=== PATIENT | female | born 1955 | race Caucasian/White ===

== ENCOUNTER → 2017-04-24 | Outpatient (CLI) | payer OTHER ==
--- NOTE | 2017-04-25 13:41 | MM ---
Reason for exam: screening (asymptomatic). Last mammogram was performed 1 year ago. History: Patient is postmenopausal. Taking estrogen for 7 years beginning at age 46. Physical Findings: A clinical breast exam by your physician is recommended on an annual basis and results should be correlated with mammographic findings. MG Screening Mammo w CAD Bilateral CC and MLO view(s) were taken. Prior study comparison: April 21, 2016, bilateral MG 3d screening mammo w/cad. July 10, 2014, bilateral MG foundation screening mammo. The breast tissue is heterogeneously dense. This may lower the sensitivity of mammography. ASSESSMENT: Benign, BI-RAD 2 RECOMMENDATION: Routine screening mammogram of both breasts in 1 year.
== END | disposition home or self-care (01) ==
LOC: RADMAMWWP 07:39
PROVIDERS: ATTEND Internal Medicine
DX: Z12.31 Encounter for screening mammogram for malignant neoplasm of breast (principal)

== ENCOUNTER → 2018-05-01 | Outpatient (CLI) | payer OTHER ==
--- NOTE | 2018-05-03 10:41 | MM ---
Reason for exam: screening (asymptomatic). Last mammogram was performed 1 year ago. History: Patient is postmenopausal. Taking estrogen for 7 years beginning at age 46. Physical Findings: A clinical breast exam by your physician is recommended on an annual basis and results should be correlated with mammographic findings. MG Screening Mammo w CAD Bilateral CC and MLO view(s) were taken. Prior study comparison: April 24, 2017, bilateral MG screening mammo w CAD. April 21, 2016, bilateral MG 3d screening mammo w/cad. There are scattered fibroglandular densities. Finding: There is a new equal density (isodense), indistinct round mass located 9 cm from the nipple in the upper outer quadrant, posterior position of the right breast. New finding since April 24, 2017. ASSESSMENT: Incomplete: need additional imaging evaluation, BI-RAD 0 RECOMMENDATION: Special view mammogram of the right breast. If lesion persists on supplemental views, image directed ultrasound is recommended. [facility] will attempt to contact patient to return for supplemental views and ultrasound if indicated.
== END | disposition home or self-care (01) ==
LOC: RADMAMWWP 06:55
PROVIDERS: ATTEND Internal Medicine
DX: Z12.31 Encounter for screening mammogram for malignant neoplasm of breast (principal)
CPT/HCPCS: 77067

== ENCOUNTER → 2018-05-16 | Outpatient (CLI) | payer OTHER ==
--- NOTE | 2018-05-29 13:45 | MM ---
Reason for exam: additional evaluation requested from abnormal screening. Last mammogram was performed less than 1 month ago. History: Patient is postmenopausal. Took estrogen for 7 years beginning at age 46. Physical Findings: Nurse did not find any significant physical abnormalities on exam. MG Work Up Mamm w CAD RT Spot compression CC, spot compression MLO, and ML view(s) were taken of the right breast. Prior study comparison: May 01, 2018, bilateral MG screening mammo w CAD. April 24, 2017, bilateral MG screening mammo w CAD. April 21, 2016, bilateral MG 3d screening mammo w/cad. There are scattered fibroglandular densities. The posterior upper outer quadrant focal asymmetry disperses on additional views. These results were verbally communicated with the patient and result sheet given to the patient on 05/16/18 ASSESSMENT: Negative, BI-RAD 1 RECOMMENDATION: Return to routine screening mammogram schedule for both breasts.
== END ==
LOC: RADMAMWWP 14:09
PROVIDERS: ATTEND Internal Medicine
DX: R92.8 Other abnormal and inconclusive findings on diagnostic imaging of breast (principal)
CPT/HCPCS: 77065

== ENCOUNTER → 2019-06-18 | Outpatient (CLI) | payer MEDICARE, OTHER ==
--- NOTE | 2019-06-20 09:28 | MM ---
Reason for exam: screening (asymptomatic). Last mammogram was performed 1 year and 1 month ago. History: Patient is postmenopausal. Took estrogen for 7 years beginning at age 46. Physical Findings: A clinical breast exam by your physician is recommended on an annual basis and results should be correlated with mammographic findings. MG Screening Mammo w CAD Bilateral CC and MLO view(s) were taken. Prior study comparison: May 16, 2018, right breast MG work up mamm w CAD RT. May 01, 2018, bilateral MG screening mammo w CAD. The breast tissue is heterogeneously dense. This may lower the sensitivity of mammography. There is chronic nodularity in the left breast. Round asymmetric density posterior, central right MLO view. ASSESSMENT: Incomplete: need additional imaging evaluation, BI-RAD 0 RECOMMENDATION: Special view mammogram of the right breast. (3D) If lesion persists on supplemental views, image directed ultrasound is recommended. [facility] will attempt to contact patient to return for supplemental views and ultrasound if indicated.
== END | disposition home or self-care (01) ==
LOC: RADMAMWWP 13:53
PROVIDERS: ATTEND Internal Medicine
DX: Z12.31 Encounter for screening mammogram for malignant neoplasm of breast (principal)
CPT/HCPCS: 77067

== ENCOUNTER → 2019-07-04 | Outpatient (CLI) | payer MEDICARE, OTHER ==
--- NOTE | 2019-07-05 09:43 | MM ---
Reason for exam: additional evaluation requested from abnormal screening. Last mammogram was performed 1 month ago. History: Patient is postmenopausal. Took estrogen for 7 years beginning at age 46. Physical Findings: Nurse did not find any significant physical abnormalities on exam. MG Work Up Mamm w CAD RT LM and spot compression MLO view(s) were taken of the right breast. Prior study comparison: June 18, 2019, bilateral MG screening mammo w CAD. May 16, 2018, right breast MG work up mamm w CAD RT. The breast tissue is heterogeneously dense. This may lower the sensitivity of mammography. The previously seen abnormality resolves on additional views and appears as fibroglandular tissue compatible with summation. Chronic nipple retraction. These results were verbally communicated with the patient and result sheet given to the patient on 07/04/19. ASSESSMENT: Negative, BI-RAD 1 RECOMMENDATION: Return to routine screening mammogram schedule for both breasts.
== END | disposition home or self-care (01) ==
LOC: RADMAMWWP 14:13
PROVIDERS: ATTEND Internal Medicine
DX: R92.8 Other abnormal and inconclusive findings on diagnostic imaging of breast (principal)
CPT/HCPCS: 77065

== ENCOUNTER → 2021-01-26 | Outpatient (CLI) | payer MEDICARE, OTHER ==
--- NOTE | 2021-01-27 09:29 | MM ---
Reason for exam: screening (asymptomatic). Last mammogram was performed 1 year and 7 months ago. History: Patient is postmenopausal. Took estrogen for 7 years beginning at age 46. Physical Findings: A clinical breast exam by your physician is recommended on an annual basis and results should be correlated with mammographic findings. MG 3D Screening Mammo W/Cad Bilateral CC and MLO view(s) were taken. Prior study comparison: July 04, 2019, right breast MG work up mamm w CAD RT. June 18, 2019, bilateral MG screening mammo w CAD. The breast tissue is heterogeneously dense. This may lower the sensitivity of mammography. There is no discrete abnormality. No significant changes when compared with prior studies. ASSESSMENT: Negative, BI-RAD 1 RECOMMENDATION: Routine screening mammogram of both breasts in 1 year.
== END | disposition home or self-care (01) ==
LOC: RADMAMWWP 14:02
PROVIDERS: ATTEND Internal Medicine
DX: Z12.31 Encounter for screening mammogram for malignant neoplasm of breast (principal)
CPT/HCPCS: 77063; 77067

== ENCOUNTER → 2021-07-15 | Outpatient (CLI) | payer MEDICARE, OTHER ==
--- NOTE | 2021-07-15 23:08 | US ---
EXAMINATION TYPE: US venous doppler duplex LE RT DATE OF EXAM: 07/15/2021 6:02 PM COMPARISON: NONE CLINICAL HISTORY: R22.43 bilateral swelling,M79.606 Pain in leg, uns. Right leg pain SIDE PERFORMED: Right TECHNIQUE: The lower extremity deep venous system is examined utilizing real time linear array sonog cheikh with graded compression, doppler sonography and color-flow sonography. VESSELS IMAGED: Common Femoral Vein Deep Femoral Vein Greater Saphenous Vein * Femoral Vein Popliteal Vein Small Saphenous Vein * Proximal Calf Veins (* superficial vessels) Right Leg: Negative for DVT Mccray's cyst visualized right popliteal fossa measuring 2.1 x 1.2 x 1.8 cm IMPRESSION: No evidence of deep vein thrombosis in the right leg.
== END | disposition home or self-care (01) ==
LOC: RADUSWWP 17:39
PROVIDERS: ATTEND Internal Medicine
DX: R22.43 Localized swelling, mass and lump, lower limb, bilateral (principal); M79.604 Pain in right leg

== ENCOUNTER 2021-08-07 18:44 | Inpatient (IN) | payer MEDICARE, OTHER ==
[2021-08-07] MEDS ORDERED: ACETAMINOPHEN TAB 500 MG TAB PO PRN (19:52)
[2021-08-07] MEDS ORDERED: ALBUTEROL HFA INHALER INHALATION STA (19:52)
--- NOTE | 2021-08-07 19:55 | ED ---
General Adult HPI - General Chief complaint: Shortness of Breath Stated complaint: SOB,CRISTOFER Poss COVID Time Seen by Provider: 08/07/21 19:33 Source: patient, RN notes reviewed Mode of arrival: ambulatory Limitations: no limitations - History of Present Illness Initial comments: Patient is a pleasant 66-year-old female presenting to the emergency department with concerns for possible COVID-19 infection. Onset of symptoms was 12 days ago. Patient does have mild cough. Patient does have some mild shortness of breathe. Patient does have significant fatigue. Patient has had some fevers and chills. Patient has had some mild myalgias. Patient did have some vomiting however that has resolved. Patient had a couple episodes of diarrhea. Patient states her sense of taste somewhat off. Patient has not been vaccinated. - Related Data Allergies Allergy/AdvReac Type Severity Reaction Status Date / Time No Known Allergies Allergy Verified 08/07/21 19:30 Review of Systems ROS Statement: Those systems with pertinent positive or pertinent negative responses have been documented in the HPI. ROS Other: All systems not noted in ROS Statement are negative. Constitutional: Reports: as per HPI, fever, chills Eyes: Denies: eye pain ENT: Denies: ear pain Respiratory: Reports: as per HPI, cough, dyspnea Endocrine: Reports: fatigue Gastrointestinal: Reports: nausea, vomiting, diarrhea. Denies: abdominal pain Genitourinary: Denies: dysuria Musculoskeletal: Denies: back pain Skin: Denies: rash Neurological: Denies: weakness Past Medical History Past Medical History: Hyperlipidemia, Thyroid Disorder History of Any Multi-Drug Resistant Organisms: None Reported Past Surgical History: No Surgical Hx Reported Past Psychological History: No Psychological Hx Reported Smoking Status: Never smoker Past Alcohol Use History: None Reported Past Drug Use History: None Reported General Exam Limitations: no limitations General appearance: alert, in no apparent distress Head exam: Present: normocephalic Eye exam: Present: normal appearance Neck exam: Present: normal inspection Respiratory exam: Present: normal lung sounds bilaterally Cardiovascular Exam: Present: regular rate, normal rhythm GI/Abdominal exam: Present: soft. Absent: tenderness Extremities exam: Present: normal inspection. Absent: pedal edema, calf tenderness Neurological exam: Present: alert Psychiatric exam: Present: normal affect, normal mood Skin exam: Present: normal color Course Vital Signs 08/07/21 08/07/21 19:26 19:47 Temperature 98 F Pulse Rate 98 Respiratory 19 Rate Blood Pressure 127/87 O2 Sat by Pulse 80 L 90 L Oximetry EKG Findings - EKG Comments: EKG Findings:: Normal sinus rhythm with a rate of 84. NV 152. QRS 68. QT 396. QTc 467. Normal axis. Normal QRS. No acute ST change. Medical Decision Making - Medical Decision Making Patient reevaluated and updated. Case was discussed with Dr. Noriega, who will admit covering Dr. Bran. - Lab Data Lab Results 08/07/21 Range/Units 19:42 Coronavirus (PCR) Detected A (Not Detectd) - Radiology Data Radiology results: image reviewed (X-ray shows bilateral interstitial changes) Disposition Clinical Impression: COVID-19, Hypoxemia requiring supplemental oxygen Disposition: ADMITTED IP TO THIS HOSP Condition: Serious Is patient prescribed a controlled substance at d/c from ED?: No Referrals: Karen Bran MD [Primary Care Provider] - 1-2 days Decision Time: 20:30
[2021-08-07] MEDS ORDERED: ALBUTEROL HFA INHALER INHALATION SCH (20:00)
--- NOTE | 2021-08-07 20:08 | XR ---
EXAMINATION TYPE: XR chest 1V portable DATE OF EXAM: 08/07/2021 COMPARISON: NONE HISTORY: Short of breath. Cough TECHNIQUE: Single view FINDINGS: Heart is normal. There is diffuse pulmonary interstitial and airspace edema in the mid and lower lung schneider. There is no pleural effusion. There are no hilar masses. IMPRESSION: There is pulmonary edema that could be acute heart failure or developing RDS.
[2021-08-07] MEDS ORDERED: NALOXONE 0.4 MG/ML 1 ML VIAL IV PRN (20:29)
[2021-08-07 20:47] LABS: Basophils # (A) 0.1 k/uL (0-0.2); Basophils % (A) 1 %; Eosinophils % (A) 0 %; HCT 43.9 % (34.0-46.0); HGB 14.5 gm/dL (11.4-16.0); Lymphocytes # (A) 0.7 k/uL (1.0-4.8); Lymphocytes % (A) 9 %; MCH 28.5 pg (25.0-35.0); MCHC 33.1 g/dL (31.0-37.0); MCV 86.1 fL (80.0-100.0); Monocytes # (A) 0.3 k/uL (0-1.0); Monocytes % (A) 5 %; Neutrophils # (A) 5.8 k/uL (1.3-7.7); Neutrophils % (A) 81 %; Platelet Count 257 k/uL (150-450); RBC 5.09 m/uL (3.80-5.40); RDW 12.9 % (11.5-15.5); WBC 7.1 k/uL (3.8-10.6)
[2021-08-07 21:00] LABS: ALT 63 U/L (4-34); AST 97 U/L (14-36); African American GFR (CKD) >90 (>60 ml/min/1.73 sqM); Albumin 3.5 g/dL (3.5-5.0); Alkaline Phosphatase 26 U/L (38-126); Anion Gap 7 mmol/L; Blood Urea Nitrogen 25 mg/dL (7-17); C Reactive Protein 3.7 mg/dL (<1.0); Calcium 9.2 mg/dL (8.4-10.2); Carbon Dioxide 30 mmol/L (22-30); Chloride 102 mmol/L (98-107); Glucose 126 mg/dL (74-99); LDH 1834 U/L (313-618); Magnesium 2.4 mg/dL (1.6-2.3); Non-African American GFR(CKD) >90 (>60 ml/min/1.73 sqM); Potassium 3.2 mmol/L (3.5-5.1); Sodium 139 mmol/L (137-145); Total Bilirubin 1.5 mg/dL (0.2-1.3); Total Protein 6.5 g/dL (6.3-8.2)
[2021-08-07] MEDS ORDERED: POTASSIUM CHLORIDE ER 20 MEQ TAB.ER PO STA (21:03)
[2021-08-07 21:31] LABS: INR 1.1 (<1.2); Prothrombin Time 11.2 sec (9.0-12.0)
[2021-08-07] MEDS: ZINC SULFATE 220 MG CAP PO SCH (21:39)
[2021-08-07] MEDS: MELATONIN 5 MG TABLET PO SCH (21:39)
[2021-08-07] MEDS: ASCORBIC ACID 500 MG TAB PO SCH (21:39)
[2021-08-07] MEDS: DEXAMETHASONE SOD PHOSPHATE 10 MG/ML 1 ML VIAL IVP SCH (21:40)
[2021-08-07] MEDS: SODIUM CHLORIDE 0.9% 1,000 ML IV SCH (21:40)
[2021-08-07] MEDS: CHOLECALCIFEROL 25 MCG (1000 IU) TABLET PO SCH (21:40)
[2021-08-08] MEDS: ALBUTEROL HFA INHALER INHALATION SCH ×3 (07:42→19:58)
[2021-08-08] MEDS ORDERED: POTASSIUM CHLORIDE ER 20 MEQ TAB.ER PO STA (09:14)
[2021-08-08] MEDS: DEXAMETHASONE SOD PHOSPHATE 10 MG/ML 1 ML VIAL IVP SCH ×2 (09:21→21:25)
[2021-08-08] MEDS: ASCORBIC ACID 500 MG TAB PO SCH ×2 (09:22→21:25)
[2021-08-08] MEDS: ZINC SULFATE 220 MG CAP PO SCH (09:22)
[2021-08-08] MEDS: CHOLECALCIFEROL 25 MCG (1000 IU) TABLET PO SCH (09:22)
[2021-08-08] MEDS: ENOXAPARIN 40 MG/0.4 ML SYRINGE SQ SCH (09:58)
[2021-08-08] MEDS: FAMOTIDINE 20 MG TAB PO SCH ×2 (09:58→21:25)
[2021-08-08] MEDS: SODIUM CHLORIDE 0.9% 1,000 ML IV SCH (10:28)
[2021-08-08 10:46] LABS: African American GFR (CKD) >90 (>60 ml/min/1.73 sqM); Anion Gap 7 mmol/L; Blood Urea Nitrogen 27 mg/dL (7-17); Calcium 9.2 mg/dL (8.4-10.2); Carbon Dioxide 27 mmol/L (22-30); Chloride 107 mmol/L (98-107); Glucose 167 mg/dL (74-99); Non-African American GFR(CKD) >90 (>60 ml/min/1.73 sqM); Sodium 141 mmol/L (137-145)
--- NOTE | 2021-08-08 12:15 | P.HPIM ---
History of Present Illness Patient is pleasant 66-year-old female came in with comments of shortness of breath found to be hypoxic patient is presently on 15 L of oxygen barely saturating well at 90% patient is found to have Covid 19 pneumonia with bilateral infiltrates patient was started on Decadron. Patient did not receive the code vaccine patient's symptoms has been going on for about 2 weeks. Patient's symptoms were episodes of diarrhea and generalized myalgias and fever patient presently doesn't have any fever. Patient has elevated inflammatory markers and d-dimer is 1.1. REVIEW OF SYSTEMS: CONSTITUTIONAL: No fever, no malaise, no fatigue. HEENT: No recent visual problems or hearing problems. Denied any sore throat. CARDIOVASCULAR: No chest pain, orthopnea, PND, no palpitations, no syncope. PULMONARY no hemoptysis. GASTROINTESTINAL: no nausea, no vomiting, no abdominal pain. NEUROLOGICAL: No headaches, no weakness, no numbness. HEMATOLOGICAL: Denies any bleeding or petechiae. GENITOURINARY: Denies any burning micturition, frequency, or urgency. MUSCULOSKELETAL/RHEUMATOLOGICAL: Denies any joint pain, swelling, or any muscle pain. ENDOCRINE: Denies any polyuria or polydipsia. The rest of the 14-point review of systems is negative. PHYSICAL EXAMINATION: GENERAL: The patient is alert and oriented x3, not in any acute distress. Well developed, well nourished. HEENT: Pupils are round and equally reacting to light. EOMI. No scleral icterus. No conjunctival pallor. Normocephalic, atraumatic. No pharyngeal erythema. No thyromegaly. CARDIOVASCULAR: S1 and S2 present. No murmurs, rubs, or gallops. PULMONARY: Chest is clear to auscultation, no wheezing or crackles. ABDOMEN: Soft, nontender, nondistended, normoactive bowel sounds. No palpable organomegaly. MUSCULOSKELETAL: No joint swelling or deformity. EXTREMITIES: No cyanosis, clubbing, or pedal edema. NEUROLOGICAL: Gross neurological examination did not reveal any focal deficits. SKIN: No rashes. Assessment and plan -Acute hypoxic respiratory failure secondary to Covid 19 pneumonia patient will be continued on oxygen can you with this. Support, patient was started on Decadron Covid vitamins patient is out of window for Remdesivir. -Hyperlipidemia -Hypothyroidism -Mildly elevated liver enzymes secondary to systemic inflammatory response from Covid 19 liver enzymes will be monitored DVT prophylaxis: Lovenox Past Medical History Past Medical History: Hyperlipidemia, Thyroid Disorder History of Any Multi-Drug Resistant Organisms: None Reported Past Surgical History: No Surgical Hx Reported Past Anesthesia/Blood Transfusion Reactions: No Reported Reaction Additional Past Anesthesia/Blood Transfusion Reaction / Comment(s): 2 blood transfusions with giving Past Psychological History: No Psychological Hx Reported Smoking Status: Never smoker Past Alcohol Use History: None Reported Past Drug Use History: None Reported - Past Family History Mother Family Medical History: Diabetes Mellitus Medications and Allergies Home Medications Medication Instructions Recorded Confirmed Type Atorvastatin [Lipitor] 40 mg PO HS 08/07/21 08/07/21 History Azithromycin [Zithromax Z-pack (6 See Taper PO DIRECTED 08/07/21 08/07/21 History tabs)] Levothyroxine Sodium [Euthyrox] 100 mcg PO DAILY 08/07/21 08/07/21 History predniSONE [Deltasone] 20 mg PO DAILY 08/07/21 08/07/21 History Allergies Allergy/AdvReac Type Severity Reaction Status Date / Time No Known Allergies Allergy Verified 08/07/21 21:02 Physical Exam Vitals: Vital Signs Temp Pulse Pulse Resp BP BP Pulse Ox 08/08/21 10:13 98.0 F 85 20 161/91 92 L 08/08/21 06:13 97.6 F 67 17 113/82 89 L 08/08/21 02:18 97.6 F 79 20 157/80 93 L 08/08/21 00:30 98.7 F 79 22 153/76 93 L 08/07/21 23:30 93 26 H 133/102 94 L 08/07/21 23:07 91 L 08/07/21 21:41 98.3 F 08/07/21 21:40 80 19 159/92 89 L 08/07/21 20:35 90 L 08/07/21 19:47 90 L 08/07/21 19:26 98 F 98 19 127/87 80 L Intake and Output 08/07/21 08/08/21 08/08/21 22:59 06:59 14:59 Other: Voiding Method Bedside Commode # Voids 1 Weight 79.379 kg 79.379 kg Results CBC & Chem 7: 08/07/21 20:25 10/31/21 10:07 Labs: Abnormal Lab Results - Last 24 Hours (Table) 08/07/21 08/07/21 08/07/21 Range/Units 19:42 20:25 20:25 Lymphocytes # 0.7 L (1.0-4.8) k/uL APTT 21.0 L (22.0-30.0) sec D-Dimer (<0.60) mg/L FEU Potassium (3.5-5.1) mmol/L BUN (7-17) mg/dL Glucose (74-99) mg/dL Magnesium (1.6-2.3) mg/dL Ferritin (10.0-291.0) ng/mL Total Bilirubin (0.2-1.3) mg/dL AST (14-36) U/L ALT (4-34) U/L Alkaline Phosphatase (38-126) U/L Lactate Dehydrogenase (313-618) U/L C-Reactive Protein (<1.0) mg/dL Coronavirus (PCR) Detected A (Not Detectd) 08/07/21 08/08/21 08/08/21 Range/Units 20:25 10:07 10:07 Lymphocytes # (1.0-4.8) k/uL APTT (22.0-30.0) sec D-Dimer 1.10 H (<0.60) mg/L FEU Potassium 3.2 L (3.5-5.1) mmol/L BUN 25 H 27 H (7-17) mg/dL Glucose 126 H 167 H (74-99) mg/dL Magnesium 2.4 H (1.6-2.3) mg/dL Ferritin 1177.0 H (10.0-291.0) ng/mL Total Bilirubin 1.5 H (0.2-1.3) mg/dL AST 97 H (14-36) U/L ALT 63 H (4-34) U/L Alkaline Phosphatase 26 L (38-126) U/L Lactate Dehydrogenase 1834 H (313-618) U/L C-Reactive Protein 3.7 H (<1.0) mg/dL Coronavirus (PCR) (Not Detectd) Thrombosis Risk Factor Assmnt - Choose All That Apply Each Factor Represents 1 point: Obesity (BMI >25) Thrombosis Risk Factor Assessment Total Risk Factor Score: 1 Thrombosis Risk Factor Assessment Level: Low Risk
[2021-08-08] MEDS: BARICITINIB 2 MG TABLET PO SCH (15:25)
--- NOTE | 2021-08-08 15:33 | P.CNPUL ---
History of Present Illness Consult date: 08/08/21 Requesting physician: Nimesh Suarez Reason for consult: dyspnea, hypoxemia, abnormal CXR/CT Chief complaint: Shortness of breath, cough, congestion History of present illness: This is a very pleasant 66-year-old female patient who follows with Dr. Bran as her primary care provider. She has hyperlipidemia, hypothyroidism. Approximately 12-13 days ago the patient developed a mild cough and shortness breath with fatigue, fever more so latex and some nausea with diarrhea. Poor appetite. She presented here to the emergency room last evening with progressive symptoms. She was found to be COVID-19 positive. She did not take the COVID-19 vaccination. Chest x-ray revealed bilateral patchy airspace disease. She was hypoxemic at 80% on room air. She is seen today in consultation on the regular medical floor. Currently sitting up in a chair at the bedside. Awake and alert. She is a dry nonproductive cough. Dyspnea on exertion. She is now up to 15 L high flow nasal cannula to maintain O2 saturations at 91%. White count 7.1. Hemoglobin 14.5. Platelets 257. Lymphocytes 0.7. D-dimer 1.10. Sodium 141. Potassium 4.0. Creatinine 0.59. Glucose 167. Ferritin 1177. LDH 1834. C-reactive protein 3.7. Pro-calcitonin 0.07. She's been initiated on Decadron, Lovenox, vitamin supplements. Outside the window for Remdesivir. Review of Systems REVIEW OF SYSTEMS: CONSTITUTIONAL: Fever, muscle aches, fatigue. Denies any recent significant weight loss or weight gain. EYES: Denies change in vision. EARS, NOSE, MOUTH, THROAT: Denies headaches, denies sore throat. CARDIOVASCULAR: Denies chest pain, palpitations or syncopal episodes. RESPIRATORY: Positive for shortness of breath, cough, congestion no hemoptysis. GASTROINTESTINAL: Poor appetite, nausea, denies abdominal pain GENITOURINARY: Denies hematuria, denies infections. MUSKULOSKELETAL: Denies pain, denies swelling. INTEGUMENTARY: Denies rash, denies eczema. NEUROLOGICAL: Denies recent memory loss, no recent seizure activity. PSYCHIATRIC: Denies anxiety, denies depression. HEMATOLOGIC/LYMPHATIC: Denies anemia, denies enlarged lymph nodes. Past Medical History Past Medical History: Hyperlipidemia, Thyroid Disorder History of Any Multi-Drug Resistant Organisms: None Reported Past Surgical History: No Surgical Hx Reported Past Anesthesia/Blood Transfusion Reactions: No Reported Reaction Additional Past Anesthesia/Blood Transfusion Reaction / Comment(s): 2 blood transfusions with giving Past Psychological History: No Psychological Hx Reported Smoking Status: Never smoker Past Alcohol Use History: None Reported Past Drug Use History: None Reported - Past Family History Mother Family Medical History: Diabetes Mellitus Medications and Allergies Home Medications Medication Instructions Recorded Confirmed Type Atorvastatin [Lipitor] 40 mg PO HS 08/07/21 08/07/21 History Azithromycin [Zithromax Z-pack (6 See Taper PO DIRECTED 08/07/21 08/07/21 History tabs)] Levothyroxine Sodium [Euthyrox] 100 mcg PO DAILY 08/07/21 08/07/21 History predniSONE [Deltasone] 20 mg PO DAILY 08/07/21 08/07/21 History Allergies Allergy/AdvReac Type Severity Reaction Status Date / Time No Known Allergies Allergy Verified 08/07/21 21:02 Physical Exam Vitals: Vital Signs Temp Pulse Pulse Resp BP BP Pulse Ox 08/08/21 13:46 91 L 08/08/21 10:13 98.0 F 85 20 161/91 92 L 08/08/21 06:13 97.6 F 67 17 113/82 89 L 08/08/21 02:18 97.6 F 79 20 157/80 93 L 08/08/21 00:30 98.7 F 79 22 153/76 93 L 08/07/21 23:30 93 26 H 133/102 94 L 08/07/21 23:07 91 L 08/07/21 21:41 98.3 F 08/07/21 21:40 80 19 159/92 89 L 08/07/21 20:35 90 L 08/07/21 19:47 90 L 08/07/21 19:26 98 F 98 19 127/87 80 L Intake and Output 08/08/21 08/08/21 08/08/21 06:59 14:59 22:59 Other: Voiding Method Bedside Commode # Voids 1 Weight 79.379 kg GENERAL EXAM: Alert, pleasant 66-year-old female patient, on 15 L high flow nasal cannula, fairly, comfortable in no apparent distress. HEAD: Normocephalic. EYES: Normal reaction of pupils, equal size. NOSE: Clear with pink turbinates. THROAT: No erythema or exudates. NECK: No masses, no JVD. CHEST: No chest wall deformity. LUNGS: Equal air entry with crackles in the bilateral bases. CVS: S1 and S2 normal with no audible murmur, regular rhythm. ABDOMEN: No hepatosplenomegaly, normal bowel sounds, no guarding or rigidity. SPINE: No scoliosis or deformity SKIN: No rashes CENTRAL NERVOUS SYSTEM: No focal deficits, tone is normal in all 4 extremities. EXTREMITIES: There is no peripheral edema. No clubbing, no cyanosis. Peripheral pulses are intact. Results - Laboratory Findings CBC and BMP: 08/07/21 20:25 08/08/21 10:07 PT/INR, D-dimer PT 11.2 sec (9.0-12.0) 08/07/21 20:25 INR 1.1 (<1.2) 08/07/21 20:25 D-Dimer 1.10 mg/L FEU (<0.60) H 08/08/21 10:07 Abnormal lab findings: Abnormal Labs 08/07/21 08/07/21 08/07/21 19:42 20:25 20:25 Lymphocytes # 0.7 L APTT 21.0 L D-Dimer Potassium BUN Glucose Magnesium Ferritin Total Bilirubin AST ALT Alkaline Phosphatase Lactate Dehydrogenase C-Reactive Protein Coronavirus (PCR) Detected A 08/07/21 08/08/21 08/08/21 20:25 10:07 10:07 Lymphocytes # APTT D-Dimer 1.10 H Potassium 3.2 L BUN 25 H 27 H Glucose 126 H 167 H Magnesium 2.4 H Ferritin 1177.0 H Total Bilirubin 1.5 H AST 97 H ALT 63 H Alkaline Phosphatase 26 L Lactate Dehydrogenase 1834 H C-Reactive Protein 3.7 H Coronavirus (PCR) - Diagnostic Findings Chest x-ray: image reviewed Assessment and Plan Assessment: 1 Acute hypoxemic respiratory failure secondary to COVID-19 pneumonia. Outside the window for Remdesivir. Patient is not vaccinated. Initiate Baricitinib. 2 Elevated inflammatory markers secondary to above 3 Hyperlipidemia 4 Hypothyroidism Plan: The patient was seen and evaluated by Dr. Roberts Chest x-ray and labs reviewed Continue Lovenox, Decadron, vitamin supplements Ordered Baricitinib Titrate the FiO2 as tolerated Follow-up chest x-ray, labs in a.m. We will continue to follow and make further recommendations based on her clinical status I, the cosigning physician, performed a history & physical examination of the patient. Lungs sounds with crackles in the bilateral bases. Maintaining good O2 saturations in the 90s on 15 L high flow nasal cannula. I discussed the assessment and plan of care with my nurse practitioner, Maggie Tarango. I attest to the above consultation as dictated by her. Time with Patient: Greater than 30
[2021-08-08] MEDS: ALPRAZolam 0.25 MG TAB PO PRN (17:47)
[2021-08-08] MEDS ORDERED: ATORVASTATIN 40 MG TAB PO SCH (21:00)
[2021-08-08] MEDS: MELATONIN 5 MG TABLET PO SCH (21:25)
[2021-08-09] MEDS: SODIUM CHLORIDE 0.9% 1,000 ML IV SCH ×3 (02:47→16:47)
[2021-08-09] MEDS: LEVOTHYROXINE 100 MCG TAB PO SCH (05:58)
[2021-08-09] MEDS: ALBUTEROL HFA INHALER INHALATION SCH ×3 (07:48→19:09)
[2021-08-09] MEDS: DEXAMETHASONE SOD PHOSPHATE 10 MG/ML 1 ML VIAL IVP SCH ×2 (08:47→21:37)
[2021-08-09] MEDS: ZINC SULFATE 220 MG CAP PO SCH (08:47)
[2021-08-09] MEDS: FAMOTIDINE 20 MG TAB PO SCH ×2 (08:47→21:38)
[2021-08-09] MEDS: CHOLECALCIFEROL 25 MCG (1000 IU) TABLET PO SCH (08:47)
[2021-08-09] MEDS: ASCORBIC ACID 500 MG TAB PO SCH ×2 (08:47→21:37)
[2021-08-09] MEDS: ENOXAPARIN 40 MG/0.4 ML SYRINGE SQ SCH (08:48)
[2021-08-09 11:05] LABS: HCT 37.8 % (37.2-46.3); HGB 11.8 g/dL (12.0-15.0); MCH 27.4 pg (27.0-32.0); MCHC 31.2 g/dL (32.0-37.0); MCV 87.7 fL (80.0-97.0); Mean Platelet Volume 11.7 fL (9.5-12.2); Platelet Count 314 X 10*3/uL (140-440); RBC 4.31 X 10*6/uL (4.10-5.20); RDW 13.2 % (11.5-14.5); WBC 6.21 X 10*3/uL (4.50-10.00)
[2021-08-09 11:21] LABS: African American GFR (CKD) 109.3 (60.0-200.0); Anion Gap 12.7 mmol/L (4.00-12.00); BUN/Creat Ratio 38.83 Ratio (12.00-20.00); Blood Urea Nitrogen 23.3 mg/dL (9.0-27.0); Calcium 8.5 mg/dL (8.7-10.3); Carbon Dioxide 23.3 mmol/L (21.6-31.8); Non-African American GFR(CKD) 94.3 (60.0-200.0); Potassium 3.6 mmol/L (3.5-5.5)
--- NOTE | 2021-08-09 13:53 | P.PN ---
Subjective Patient is pleasant 66-year-old female came in with comments of shortness of breath found to be hypoxic patient is presently on 15 L of oxygen barely saturating well at 90% patient is found to have Covid 19 pneumonia with bilateral infiltrates patient was started on Decadron. Patient did not receive the code vaccine patient's symptoms has been going on for about 2 weeks. Patient's symptoms were episodes of diarrhea and generalized myalgias and fever patient presently doesn't have any fever. Patient has elevated inflammatory markers and d-dimer is 1.1. Patient is feeling better today patient that remains 15. L of oxygen. Constitutional: Denied any fatigue denied any fever. Cardio vascular: denied any chest pain, palpitations Gastrointestinal denied any nausea vomiting Pulmonary: Denied any shortness of breath cough Neurologic denied any new focal deficits All inpatient medications were reviewed and appropriate changes in these m edications as dictated in the interval history and assessment and plan. PHYSICAL EXAMINATION: GENERAL: The patient is alert and oriented x3, not in any acute distress. Well developed, well nourished. HEENT: Pupils are round and equally reacting to light. EOMI. No scleral icterus. No conjunctival pallor. Normocephalic, atraumatic. No pharyngeal erythema. No thyromegaly. CARDIOVASCULAR: S1 and S2 present. No murmurs, rubs, or gallops. PULMONARY: Chest is clear to auscultation, no wheezing or crackles. ABDOMEN: Soft, nontender, nondistended, normoactive bowel sounds. No palpable organomegaly. MUSCULOSKELETAL: No joint swelling or deformity. EXTREMITIES: No cyanosis, clubbing, or pedal edema. NEUROLOGICAL: Gross neurological examination did not reveal any focal deficits. SKIN: No rashes. Assessment and plan -Acute hypoxic respiratory failure secondary to Covid 19 pneumonia patient will be continued on oxygen can you with this. Support, patient was started on Decadron Covid vitamins patient is out of window for Remdesivir. -Hyperlipidemia -Hypothyroidism -Mildly elevated liver enzymes secondary to systemic inflammatory response from Covid 19 liver enzymes will be monitored DVT prophylaxis: Lovenox Objective - Vital Signs Vital signs: Vital Signs Temp 97.5 F L 08/09/21 08:55 Pulse 76 08/09/21 08:55 Resp 18 08/09/21 08:55 BP 151/78 08/09/21 08:55 Pulse Ox 91 L 08/09/21 08:55 Intake & Output 08/08/21 08/09/21 08/09/21 18:59 06:59 18:59 Other: Voiding Method Bedside Commode Bedside Commode Bedside Commode # Voids 3 3 - Labs CBC & Chem 7: 08/09/21 07:15 08/09/21 07:15 Labs: Abnormal Lab Results - Last 24 Hours (Table) 08/09/21 08/09/21 Range/Units 07:15 07:15 Hgb 11.8 L (12.0-15.0) g/dL MCHC 31.2 L (32.0-37.0) g/dL Anion Gap 12.70 H (4.00-12.00) mmol/L BUN/Creatinine Ratio 38.83 H (12.00-20.00) Ratio Glucose 140 H (70-110) mg/dL Calcium 8.5 L (8.7-10.3) mg/dL Microbiology - Last 24 Hours (Table) 08/07/21 20:12 Blood Culture - Preliminary Blood No Growth after 24 hours 08/07/21 20:28 Blood Culture - Preliminary Blood No Growth after 24 hours
--- NOTE | 2021-08-09 15:36 | P.PN ---
Subjective Progress Note Date: 08/09/21 Principal diagnosis: Coronavirus associated pneumonia. This is a very pleasant 66-year-old female patient who follows with Dr. Bran as her primary care provider. She has hyperlipidemia, hypothyroidism. Approximately 12-13 days ago the patient developed a mild cough and shortness breath with fatigue, fever more so latex and some nausea with diarrhea. Poor appetite. She presented here to the emergency room last evening with progressive symptoms. She was found to be COVID-19 positive. She did not take the COVID-19 vaccination. Chest x-ray revealed bilateral patchy airspace disease. She was hypoxemic at 80% on room air. She is seen today in consultation on the regular medical floor. Currently sitting up in a chair at the bedside. Awake and alert. She is a dry nonproductive cough. Dyspnea on exertion. She is now up to 15 L high flow nasal cannula to maintain O2 saturations at 91%. White count 7.1. Hemoglobin 14.5. Platelets 257. Lymphocytes 0.7. D-dimer 1.10. Sodium 141. Potassium 4.0. Creatinine 0.59. Glucose 167. Ferritin 1177. LDH 1834. C-reactive protein 3.7. Pro-calcitonin 0.07. She's been initiated on Decadron, Lovenox, vitamin supplements. Outside the window for Remdesivir. Progress note dated 08/09/2021. 66-year-old female, again seen in room 480. She was admitted with a diagnosis of coronavirus associated pneumonia. She was seen by our consultative team, yesterday. Currently, the patient appears to be doing better. Currently, she is on 15 L high flow nasal cannula with saturations in the mid to high 90s. Temperature 97.4, heart rate 75, respiratory rate 18, and blood pressure 160/79. Laboratory data includes a white count of 6.21, hemoglobin 11.8, hematocrit 37.8, and platelet count 314,000. Sodium 145, potassium 3.6, chlorides 109, CO2 23, anion gap 13, BUN 23, and creatinine 0.6. Chest x-ray shows diffuse bilateral infiltrates. Objective - Vital Signs Vital signs: Vital Signs Temp 97.4 F L 08/09/21 14:24 Pulse 75 08/09/21 14:24 Resp 18 08/09/21 14:24 BP 160/79 08/09/21 14:24 Pulse Ox 96 08/09/21 14:24 Intake & Output 08/08/21 08/09/21 08/09/21 18:59 06:59 18:59 Other: Voiding Method Bedside Commode Bedside Commode Bedside Commode # Voids 3 3 - Exam No acute distress, oriented 3. Mild tachypnea. Currently on 15 L high flow nasal cannula. No conversational dyspnea or use of accessory muscles. HEENT examination is grossly unremarkable. Neck supple. Full range of motion. No adenopathy thyromegaly or neck vein distention. Cardiovascular examination reveals regular rhythm rate. S1-S2 normal. No S3 or S4. No discernible murmur noted. Heart rate 75 bpm. Heart sounds are distant. Lungs reveal diffuse bilateral rhonchi. Breath sounds are equal bilaterally. There are no wheezes or crackles. Saturations are 96% on high flow nasal cannula at 15 L/m. Abdomen soft bowel sounds are heard. No masses or tenderness. Extremities are intact. No cyanosis clubbing or edema. Skin is without rash or lesion. Neurologic examination is brief but nonfocal. - Labs CBC & Chem 7: 08/09/21 07:15 08/09/21 07:15 Labs: Abnormal Lab Results - Last 24 Hours (Table) 08/09/21 08/09/21 Range/Units 07:15 07:15 Hgb 11.8 L (12.0-15.0) g/dL MCHC 31.2 L (32.0-37.0) g/dL Anion Gap 12.70 H (4.00-12.00) mmol/L BUN/Creatinine Ratio 38.83 H (12.00-20.00) Ratio Glucose 140 H (70-110) mg/dL Calcium 8.5 L (8.7-10.3) mg/dL Microbiology - Last 24 Hours (Table) 08/07/21 20:12 Blood Culture - Preliminary Blood No Growth after 24 hours 08/07/21 20:28 Blood Culture - Preliminary Blood No Growth after 24 hours Assessment and Plan Assessment: Acute hypoxemic respiratory failure secondary to Covid 19 pneumonia/coronavirus associated pneumonia. Elevated inflammatory marker secondary to coronavirus infection. History of hyperlipidemia. History of hypothyroidism. Plan: Plan dated 08/09/2021. The patient's on albuterol inhaler, vitamin C, vitamin D3, and zinc, SERGEY, Decadron, and Lovenox. The patient states that she feels better today than she did yesterday. We will continue to follow make recommendations where appropriate. The patient was outside the window for REM. Prognosis is guarded. Time with Patient: Less than 30
[2021-08-09] MEDS: BARICITINIB 2 MG TABLET PO SCH (16:46)
[2021-08-09] MEDS: ALPRAZolam 0.25 MG TAB PO PRN (16:47)
[2021-08-09] MEDS: MELATONIN 5 MG TABLET PO SCH (21:37)
[2021-08-10] MEDS: LEVOTHYROXINE 100 MCG TAB PO SCH (05:34)
[2021-08-10 08:23] LABS: Basophils % (A) 0 %; Eosinophils % (A) 0 %; HCT 37.2 % (34.0-46.0); HGB 11.8 gm/dL (11.4-16.0); Lymphocytes # (A) 0.8 k/uL (1.0-4.8); Lymphocytes % (A) 13 %; MCHC 31.7 g/dL (31.0-37.0); MCV 88.3 fL (80.0-100.0); Mean Platelet Volume 8.8; Monocytes # (A) 0.4 k/uL (0-1.0); Monocytes % (A) 5 %; Neutrophils # (A) 5.4 k/uL (1.3-7.7); Neutrophils % (A) 81 %; Platelet Count 313 k/uL (150-450); RBC 4.21 m/uL (3.80-5.40); WBC 6.7 k/uL (3.8-10.6)
[2021-08-10] MEDS: ENOXAPARIN 40 MG/0.4 ML SYRINGE SQ SCH (08:32)
[2021-08-10] MEDS: CHOLECALCIFEROL 25 MCG (1000 IU) TABLET PO SCH (08:32)
[2021-08-10] MEDS: FAMOTIDINE 20 MG TAB PO SCH ×2 (08:33→21:30)
[2021-08-10] MEDS: ZINC SULFATE 220 MG CAP PO SCH (08:33)
[2021-08-10] MEDS: ASCORBIC ACID 500 MG TAB PO SCH ×2 (08:33→21:30)
[2021-08-10] MEDS: DEXAMETHASONE SOD PHOSPHATE 10 MG/ML 1 ML VIAL IVP SCH ×2 (08:35→21:30)
[2021-08-10 08:38] LABS: ALT 57 U/L (4-34); AST 57 U/L (14-36); African American GFR (CKD) >90 (>60 ml/min/1.73 sqM); Albumin/Globulin Ratio 1.1; Alkaline Phosphatase 21 U/L (38-126); Anion Gap 8 mmol/L; Blood Urea Nitrogen 22 mg/dL (7-17); Calcium 8.7 mg/dL (8.4-10.2); Carbon Dioxide 24 mmol/L (22-30); Chloride 110 mmol/L (98-107); Globulin 2.7 g/dL; Glucose 127 mg/dL (74-99); Non-African American GFR(CKD) >90 (>60 ml/min/1.73 sqM); Potassium 3.9 mmol/L (3.5-5.1); Sodium 142 mmol/L (137-145); Total Protein 5.7 g/dL (6.3-8.2)
[2021-08-10] MEDS: ALBUTEROL HFA INHALER INHALATION SCH ×3 (08:44→22:10)
[2021-08-10] MEDS: ALPRAZolam 0.25 MG TAB PO PRN (11:10)
--- NOTE | 2021-08-10 12:17 | P.PN ---
Subjective Progress Note Date: 08/10/21 Patient is pleasant 66-year-old female came in with comments of shortness of breath found to be hypoxic patient is presently on 15 L of oxygen barely saturating well at 90% patient is found to have Covid 19 pneumonia with bilateral infiltrates patient was started on Decadron. Patient did not receive the code vaccine patient's symptoms has been going on for about 2 weeks. Patient's symptoms were episodes of diarrhea and generalized myalgias and fever patient presently doesn't have any fever. Patient has elevated inflammatory markers and d-dimer is 1.1. Patient is feeling better today patient that remains 15. L of oxygen. 08/10/2021 Patient is evaluated today sitting up in the chair. She does state that at times she is especially short of breath and she is very worried about her status. She is in Xanax every 8 hours as needed, we will change this to twice a day scheduled. She is on 15 L high flow nasal cannula with an oxygen saturation of 93%. Blood pressure is 147/74. She is afebrile. She is quite fatigued she is only able to [place] [facility] [place] the chair. Labs today show a white count of 6.7. Chloride 110, potassium 3.9, sodium 142. Liver enzymes are mildly elevated. She is on Decadron, olumiant, and vitamins for COVID. ROS Constitutional: Denied any fatigue denied any fever reports feeling anxious Cardio vascular: denied any chest pain, palpitations Gastrointestinal denied any nausea vomiting Pulmonary: Her pressures of breath at rest and with exertion. Reports nonproductive cough. Neurologic denied any new focal deficits All inpatient medications were reviewed and appropriate changes in these medications as dictated in the interval history and assessment and plan. PHYSICAL EXAMINATION: GENERAL: The patient is alert and oriented x3, not in any acute distress. Well developed, well nourished. HEENT: Pupils are round and equally reacting to light. EOMI. No scleral icterus. No conjunctival pallor. Normocephalic, atraumatic. No pharyngeal erythema. No thyromegaly. CARDIOVASCULAR: S1 and S2 present. No murmurs, rubs, or gallops. PULMONARY: Chest is tight there is diminished airflow arteriorly with inspiration, she has some faint crackles posterior bases ABDOMEN: Soft, nontender, nondistended, normoactive bowel sounds. No palpable o rganomegaly. MUSCULOSKELETAL: No joint swelling or deformity. EXTREMITIES: No cyanosis, clubbing, or pedal edema. NEUROLOGICAL: Gross neurological examination did not reveal any focal deficits. SKIN: No rashes. Assessment and plan -Acute hypoxic respiratory failure secondary to Covid 19 pneumonia, patient requiring 15L high flow oxygen support via nasal cannula. Patient was started on Decadron and COVID vitamins patient is out of window for Remdesivir, on olumiant. -Hyperlipidemia -Hypothyroidism -Mildly elevated liver enzymes secondary to systemic inflammatory response from Covid 19 liver enzymes will be monitored -hyperglyemia s/t decadron will add novolog DVT prophylaxis: Lovenox GI Prophylaxis: Pepcid FULL CODE Repeat chest xray Objective - Vital Signs Vital signs: Vital Signs Temp 97.9 F 08/10/21 08:00 Pulse 81 08/10/21 08:00 Resp 20 08/10/21 08:00 BP 147/74 08/10/21 08:00 Pulse Ox 93 L 08/10/21 08:00 Intake & Output 08/09/21 08/10/21 08/10/21 18:59 06:59 18:59 Other: Voiding Method Bedside Commode Bedside Commode # Voids 2 4 # Bowel Movements 0 - Labs CBC & Chem 7: 08/10/21 07:42 08/10/21 07:42 Labs: Abnormal Lab Results - Last 24 Hours (Table) 08/10/21 08/10/21 Range/Units 07:42 07:42 Lymphocytes # 0.8 L (1.0-4.8) k/uL Chloride 110 H (98-107) mmol/L BUN 22 H (7-17) mg/dL Glucose 127 H (74-99) mg/dL AST 57 H (14-36) U/L ALT 57 H (4-34) U/L Alkaline Phosphatase 21 L (38-126) U/L Total Protein 5.7 L (6.3-8.2) g/dL Albumin 3.0 L (3.5-5.0) g/dL Microbiology - Last 24 Hours (Table) 08/07/21 20:12 Blood Culture - Preliminary Blood No Growth after 48 hours 08/07/21 20:28 Blood Culture - Preliminary Blood No Growth after 48 hours Assessment and Plan Time with Patient: Greater than 30
[2021-08-10] MEDS: INSULIN ASPART (NovoLOG) 100 UNIT/ML VIAL SQ SCH ×3 (12:51→21:38)
--- NOTE | 2021-08-10 12:51 | P.PN ---
Subjective Progress Note Date: 08/10/21 Principal diagnosis: Acute hypoxemic respiratory failure secondary to COVID-19 pneumonia This is a very pleasant 66-year-old female patient who follows with Dr. Bran as her primary care provider. She has hyperlipidemia, hypothyroidism. Approximately 12-13 days ago the patient developed a mild cough and shortness breath with fatigue, fever more so latex and some nausea with diarrhea. Poor appetite. She presented here to the emergency room last evening with progressive symptoms. She was found to be COVID-19 positive. She did not take the COVID-19 vaccination. Chest x-ray revealed bilateral patchy airspace disease. She was hypoxemic at 80% on room air. She is seen today in consultation on the regular medical floor. Currently sitting up in a chair at the bedside. Awake and alert. She is a dry nonproductive cough. Dyspnea on exertion. She is now up to 15 L high flow nasal cannula to maintain O2 saturations at 91%. White count 7.1. Hemoglobin 14.5. Platelets 257. Lymphocytes 0.7. D-dimer 1.10. Sodium 141. Potassium 4.0. Creatinine 0.59. Glucose 167. Ferritin 1177. LDH 1834. C-reactive protein 3.7. Pro-calcitonin 0.07. She's been initiated on Decadron, Lovenox, vitamin supplements. Outside the window for Remdesivir. Progress note dated 08/09/2021. 66-year-old female, again seen in room 480. She was admitted with a diagnosis of coronavirus associated pneumonia. She was seen by our consultative team, yesterday. Currently, the patient appears to be doing better. Currently, she is on 15 L high flow nasal cannula with saturations in the mid to high 90s. Temperature 97.4, heart rate 75, respiratory rate 18, and blood pressure 160/79. Laboratory data includes a white count of 6.21, hemoglobin 11.8, hematocrit 37.8, and platelet count 314,000. Sodium 145, potassium 3.6, chlorides 109, CO2 23, anion gap 13, BUN 23, and creatinine 0.6. Chest x-ray shows diffuse bilateral infiltrates. The patient is seen today 08/10/2021 in follow-up on the regular medical floor. She is currently sitting up in a chair at the bedside. Awake and alert in no acute distress. Still requiring 15 L high flow nasal cannula. Requiring some X anax for anxiety. Chest x-ray continues to show bilateral patchy infiltrates. She's currently afebrile. Hemodynamically stable. Blood cultures reveal no growth. White count 6.7. Hemoglobin 11.8. Lymphocytes 0.8. Sodium 142. Potassium 3.9. Creatinine 0.54. AST 57. ALT 57. We'll calcitonin was 0.07. She is continued on Baricitinib, Decadron, Lovenox, vitamin supplements. Remains on bronchodilators. Objective - Vital Signs Vital signs: Vital Signs Temp 97.9 F 08/10/21 08:00 Pulse 81 08/10/21 08:00 Resp 20 08/10/21 08:00 BP 147/74 08/10/21 08:00 Pulse Ox 93 L 08/10/21 08:00 Intake & Output 08/09/21 08/10/21 08/10/21 18:59 06:59 18:59 Other: Voiding Method Bedside Commode Bedside Commode # Voids 2 4 # Bowel Movements 0 - Exam GENERAL EXAM: Alert, pleasant 66-year-old female patient, on 15 L high flow nasal cannula, fairly comfortable in mild respiratory distress. HEAD: Normocephalic. EYES: Normal reaction of pupils, equal size. NOSE: Clear with pink turbinates. THROAT: No erythema or exudates. NECK: No masses, no JVD. CHEST: No chest wall deformity. LUNGS: Equal air entry with crackles in the bilateral bases. CVS: S1 and S2 normal with no audible murmur, regular rhythm. ABDOMEN: No hepatosplenomegaly, normal bowel sounds, no guarding or rigidity. SPINE: No scoliosis or deformity SKIN: No rashes CENTRAL NERVOUS SYSTEM: No focal deficits, tone is normal in all 4 extremities. EXTREMITIES: There is no peripheral edema. No clubbing, no cyanosis. Peripheral pulses are intact. - Labs CBC & Chem 7: 08/10/21 07:42 08/10/21 07:42 Labs: Abnormal Lab Results - Last 24 Hours (Table) 08/10/21 08/10/21 Range/Units 07:42 07:42 Lymphocytes # 0.8 L (1.0-4.8) k/uL Chloride 110 H (98-107) mmol/L BUN 22 H (7-17) mg/dL Glucose 127 H (74-99) mg/dL AST 57 H (14-36) U/L ALT 57 H (4-34) U/L Alkaline Phosphatase 21 L (38-126) U/L Total Protein 5.7 L (6.3-8.2) g/dL Albumin 3.0 L (3.5-5.0) g/dL Microbiology - Last 24 Hours (Table) 08/07/21 20:12 Blood Culture - Preliminary Blood No Growth after 48 hours 08/07/21 20:28 Blood Culture - Preliminary Blood No Growth after 48 hours Assessment and Plan Assessment: 1 Acute hypoxemic respiratory failure secondary to COVID-19 pneumonia. Outside the window for Remdesivir. Patient is not vaccinated. Initiated on Baricitinib 08/07/2021. 2 Elevated inflammatory markers secondary to above 3 Hyperlipidemia 4 Hypothyroidism Plan: The patient was seen and evaluated by Dr. Camp Chest x-ray and labs reviewed Continue Lovenox, Decadron, vitamin supplements Continue Baricitinib Titrate the FiO2 as tolerated Follow-up inflammatory markers in the a.m. We will continue to follow and make further recommendations based on her clinical status I, the cosigning physician, performed a history & physical examination of the patient. Lungs sounds with crackles in the bilateral bases. Maintaining good O2 saturations in the 90s on 15 L high flow nasal cannula. I discussed the assessment and plan of care with my nurse practitioner, Maggie Tarango. I attest to the above note as dictated by her.
--- NOTE | 2021-08-10 13:55 | XR ---
EXAMINATION TYPE: XR chest 1V portable DATE OF EXAM: 08/10/2021 COMPARISON: Chest x-ray 08/07/2021 HISTORY: Dyspnea TECHNIQUE: Single frontal view of the chest is obtained. FINDINGS: Patchy bilateral airspace disease is again noted. There is no evident pneumothorax or pleu ral effusion. Cardiac mediastinal silhouette is stable. Bones are unchanged. IMPRESSION: Correlate for pneumonia
[2021-08-10] MEDS: SODIUM CHLORIDE 0.9% 1,000 ML IV SCH (16:36)
[2021-08-10] MEDS: BARICITINIB 2 MG TABLET PO SCH (16:36)
[2021-08-10 16:37] LABS: Glucose,Whole Blood 197 mg/dL (75-99)
[2021-08-10] MEDS: ALPRAZolam 0.25 MG TAB PO SCH (21:30)
[2021-08-10] MEDS: MELATONIN 5 MG TABLET PO SCH (21:30)
[2021-08-10 21:39] LABS: Glucose,Whole Blood 109 mg/dL (75-99)
[2021-08-11] MEDS: LEVOTHYROXINE 100 MCG TAB PO SCH (05:40)
[2021-08-11] MEDS: SODIUM CHLORIDE 0.9% 1,000 ML IV SCH ×2 (05:40→19:52)
[2021-08-11 07:51] LABS: Glucose,Whole Blood 131 mg/dL (75-99)
[2021-08-11] MEDS: ALBUTEROL HFA INHALER INHALATION SCH ×3 (08:16→20:50)
[2021-08-11 09:15] LABS: Basophils % (A) 0 %; Eosinophils % (A) 0 %; HCT 38.5 % (34.0-46.0); HGB 12.9 gm/dL (11.4-16.0); Lymphocytes # (A) 0.6 k/uL (1.0-4.8); Lymphocytes % (A) 10 %; MCH 28.3 pg (25.0-35.0); MCHC 33.4 g/dL (31.0-37.0); MCV 84.8 fL (80.0-100.0); Mean Platelet Volume 8.5; Monocytes # (A) 0.3 k/uL (0-1.0); Monocytes % (A) 5 %; Neutrophils # (A) 5.3 k/uL (1.3-7.7); Neutrophils % (A) 84 %; Platelet Count 338 k/uL (150-450); RBC 4.54 m/uL (3.80-5.40); RDW 13.2 % (11.5-15.5); WBC 6.3 k/uL (3.8-10.6)
[2021-08-11] MEDS: INSULIN ASPART (NovoLOG) 100 UNIT/ML VIAL SQ SCH ×4 (09:17→21:00)
[2021-08-11] MEDS: ASCORBIC ACID 500 MG TAB PO SCH ×2 (09:26→20:11)
[2021-08-11] MEDS: ZINC SULFATE 220 MG CAP PO SCH (09:26)
[2021-08-11] MEDS: CHOLECALCIFEROL 25 MCG (1000 IU) TABLET PO SCH (09:27)
[2021-08-11] MEDS: FAMOTIDINE 20 MG TAB PO SCH ×2 (09:27→20:11)
[2021-08-11] MEDS: ENOXAPARIN 40 MG/0.4 ML SYRINGE SQ SCH (09:28)
[2021-08-11] MEDS: ALPRAZolam 0.25 MG TAB PO SCH ×2 (09:28→20:11)
[2021-08-11] MEDS: DEXAMETHASONE SOD PHOSPHATE 10 MG/ML 1 ML VIAL IVP SCH ×2 (09:28→20:11)
[2021-08-11 09:49] LABS: ALT 59 U/L (4-34); AST 58 U/L (14-36); African American GFR (CKD) >90 (>60 ml/min/1.73 sqM); Albumin 3.2 g/dL (3.5-5.0); Albumin/Globulin Ratio 1.2; Alkaline Phosphatase 24 U/L (38-126); Anion Gap 7 mmol/L; Blood Urea Nitrogen 20 mg/dL (7-17); C Reactive Protein 0.9 mg/dL (<1.0); Carbon Dioxide 25 mmol/L (22-30); Chloride 105 mmol/L (98-107); Globulin 2.7 g/dL; Glucose 149 mg/dL (74-99); LDH 1004 U/L (313-618); Non-African American GFR(CKD) >90 (>60 ml/min/1.73 sqM); Potassium 3.7 mmol/L (3.5-5.1); Sodium 137 mmol/L (137-145); Total Protein 5.9 g/dL (6.3-8.2)
[2021-08-11 11:40] LABS: Glucose,Whole Blood 169 mg/dL (75-99)
--- NOTE | 2021-08-11 13:04 | P.PN ---
Subjective Progress Note Date: 08/11/21 Principal diagnosis: Acute hypoxemic respiratory failure secondary to COVID-19 pneumonia This is a very pleasant 66-year-old female patient who follows with Dr. Bran as her primary care provider. She has hyperlipidemia, hypothyroidism. Approximately 12-13 days ago the patient developed a mild cough and shortness breath with fatigue, fever more so latex and some nausea with diarrhea. Poor appetite. She presented here to the emergency room last evening with progressive symptoms. She was found to be COVID-19 positive. She did not take the COVID-19 vaccination. Chest x-ray revealed bilateral patchy airspace disease. She was hypoxemic at 80% on room air. She is seen today in consultation on the regular medical floor. Currently sitting up in a chair at the bedside. Awake and alert. She is a dry nonproductive cough. Dyspnea on exertion. She is now up to 15 L high flow nasal cannula to maintain O2 saturations at 91%. White count 7.1. Hemoglobin 14.5. Platelets 257. Lymphocytes 0.7. D-dimer 1.10. Sodium 141. Potassium 4.0. Creatinine 0.59. Glucose 167. Ferritin 1177. LDH 1834. C-reactive protein 3.7. Pro-calcitonin 0.07. She's been initiated on Decadron, Lovenox, vitamin supplements. Outside the window for Remdesivir. Progress note dated 08/09/2021. 66-year-old female, again seen in room 480. She was admitted with a diagnosis of coronavirus associated pneumonia. She was seen by our consultative team, yesterday. Currently, the patient appears to be doing better. Currently, she is on 15 L high flow nasal cannula with saturations in the mid to high 90s. Temperature 97.4, heart rate 75, respiratory rate 18, and blood pressure 160/79. Laboratory data includes a white count of 6.21, hemoglobin 11.8, hematocrit 37.8, and platelet count 314,000. Sodium 145, potassium 3.6, chlorides 109, CO2 23, anion gap 13, BUN 23, and creatinine 0.6. Chest x-ray shows diffuse bilateral infiltrates. The patient is seen today 08/10/2021 in follow-up on the regular medical floor. She is currently sitting up in a chair at the bedside. Awake and alert in no acute distress. Still requiring 15 L high flow nasal cannula. Requiring some X anax for anxiety. Chest x-ray continues to show bilateral patchy infiltrates. She's currently afebrile. Hemodynamically stable. Blood cultures reveal no growth. White count 6.7. Hemoglobin 11.8. Lymphocytes 0.8. Sodium 142. Potassium 3.9. Creatinine 0.54. AST 57. ALT 57. We'll calcitonin was 0.07. She is continued on Baricitinib, Decadron, Lovenox, vitamin supplements. Remains on bronchodilators. The patient is seen today 08/11/2021 in follow-up on the regular medical floor. She is awake and alert in no acute distress. She is sitting up in a chair at the bedside. She is still requiring 15 L high flow nasal cannula to maintain O2 saturations at 92% currently. Afebrile. Hemodynamically stable. White count 6.3. Hemoglobin 12.9. Lymphocytes 0.6. D-dimer 1.05. Sodium 137. Potassium 3.7. Creatinine 0.63. Glucose 149. AST 58, ALT 59. LDH 1004. C-reactive protein 0.9. She is continued on Baricitinib, Decadron, Lovenox, bronchodilators, vitamin supplements. 0.9 normal saline at 75 ML's per hour. Objective - Vital Signs Vital signs: Vital Signs Temp 98 F 08/11/21 10:40 Pulse 77 08/11/21 10:40 Resp 17 08/11/21 10:40 BP 156/79 08/11/21 10:40 Pulse Ox 92 L 08/11/21 10:40 Intake & Output 08/10/21 08/11/21 08/11/21 18:59 06:59 18:59 Intake Total 236 Balance 236 Intake: Oral 236 Other: Voiding Method Bedside Commode Bedside Commode # Voids 3 2 - Exam GENERAL EXAM: Alert, pleasant 66-year-old female patient, on 15 L high flow nasal cannula, up in a chair at the bedside, fairly comfortable in mild respiratory distress. HEAD: Normocephalic. EYES: Normal reaction of pupils, equal size. NOSE: Clear with pink turbinates. THROAT: No erythema or exudates. NECK: No masses, no JVD. CHEST: No chest wall deformity. LUNGS: Equal air entry with crackles in the bilateral bases. CVS: S1 and S2 normal with no audible murmur, regular rhythm. ABDOMEN: No hepatosplenomegaly, normal bowel sounds, no guarding or rigidity. SPINE: No scoliosis or deformity SKIN: No rashes CENTRAL NERVOUS SYSTEM: No focal deficits, tone is normal in all 4 extremities. EXTREMITIES: There is no peripheral edema. No clubbing, no cyanosis. Peripheral pulses are intact. - Labs CBC & Chem 7: 08/11/21 08:45 08/11/21 08:45 Labs: Abnormal Lab Results - Last 24 Hours (Table) 08/10/21 08/10/21 08/11/21 Range/Units 16:31 21:37 07:49 Lymphocytes # (1.0-4.8) k/uL D-Dimer (<0.60) mg/L FEU BUN (7-17) mg/dL Glucose (74-99) mg/dL POC Glucose (mg/dL) 197 H 109 H 131 H (75-99) mg/dL AST (14-36) U/L ALT (4-34) U/L Alkaline Phosphatase (38-126) U/L Lactate Dehydrogenase (313-618) U/L Total Protein (6.3-8.2) g/dL Albumin (3.5-5.0) g/dL 08/11/21 08/11/21 08/11/21 Range/Units 08:45 08:45 08:45 Lymphocytes # 0.6 L (1.0-4.8) k/uL D-Dimer 1.05 H (<0.60) mg/L FEU BUN 20 H (7-17) mg/dL Glucose 149 H (74-99) mg/dL POC Glucose (mg/dL) (75-99) mg/dL AST 58 H (14-36) U/L ALT 59 H (4-34) U/L Alkaline Phosphatase 24 L (38-126) U/L Lactate Dehydrogenase 1004 H (313-618) U/L Total Protein 5.9 L (6.3-8.2) g/dL Albumin 3.2 L (3.5-5.0) g/dL 08/11/21 Range/Units 11:37 Lymphocytes # (1.0-4.8) k/uL D-Dimer (<0.60) mg/L FEU BUN (7-17) mg/dL Glucose (74-99) mg/dL POC Glucose (mg/dL) 169 H (75-99) mg/dL AST (14-36) U/L ALT (4-34) U/L Alkaline Phosphatase (38-126) U/L Lactate Dehydrogenase (313-618) U/L Total Protein (6.3-8.2) g/dL Albumin (3.5-5.0) g/dL Microbiology - Last 24 Hours (Table) 08/07/21 20:12 Blood Culture - Preliminary Blood No Growth after 72 hours 08/07/21 20:28 Blood Culture - Preliminary Blood No Growth after 72 hours Assessment and Plan Assessment: 1 Acute hypoxemic respiratory failure secondary to COVID-19 pneumonia. Outside the window for Remdesivir. Patient is not vaccinated. Initiated on Baricitinib 08/07/2021. 2 Elevated inflammatory markers secondary to above 3 Hyperlipidemia 4 Hypothyroidism Plan: Continue Lovenox, Decadron, vitamin supplements Continue Baricitinib Titrate the FiO2 as tolerated Follow-up inflammatory markers and chest x-ray in the a.m. We will continue to follow and make further recommendations based on her clinical status I, the cosigning physician, performed a history & physical examination of the patient. Lungs sounds with crackles in the bilateral bases. Maintaining good O2 saturations in the 90s on 15 L high flow nasal cannula. I discussed the asses sment and plan of care with my nurse practitioner, Maggie Tarango. I attest to the above note as dictated by her.
--- NOTE | 2021-08-11 15:18 | P.PN ---
Subjective Progress Note Date: 08/11/21 Patient is pleasant 66-year-old female came in with comments of shortness of breath found to be hypoxic patient is presently on 15 L of oxygen barely saturating well at 90% patient is found to have Covid 19 pneumonia with bilateral infiltrates patient was started on Decadron. Patient did not receive the code vaccine patient's symptoms has been going on for about 2 weeks. Patient's symptoms were episodes of diarrhea and generalized myalgias and fever patient presently doesn't have any fever. Patient has elevated inflammatory markers and d-dimer is 1.1. Patient is feeling better today patient that remains 15. L of oxygen. 08/10/2021 Patient is evaluated today sitting up in the chair. She does state that at times she is especially short of breath and she is very worried about her status. She is in Xanax every 8 hours as needed, we will change this to twice a day scheduled. She is on 15 L high flow nasal cannula with an oxygen saturation of 93%. Blood pressure is 147/74. She is afebrile. She is quite fatigued she is only able to transfer from the [facility] [place] and back to the chair. Labs today show a white count of 6.7. Chloride 110, potassium 3.9, sodium 142. Liver enzymes are mildly elevated. She is on Decadron, olumiant, and vitamins for COVID. 08/11/2021 Patient is evaluated today sitting up in a chair, she does state that her breathing is improving. She is still on a 15 L nasal cannula high flow maintaining oxygen saturation at 95%. Her blood pressure is 147/82. She is af ebrile, heart rate 73 sinus rhythm. Labs today show a white count of 6.3, d- dimer 1.05, LDH of 1004 CRP is within normal limits at 0.9. We will give her some oral potassium today is 3.7. Patient states that she did have a bowel movement today, she denies nausea, denies vomiting. Patient also have a repeat chest x-ray in the morning. States that her anxiety is feeling better with the changes to the Xanax. ROS Constitutional: Denied any fatigue denied any fever reports feeling anxious Cardio vascular: denied any chest pain, palpitations Gastrointestinal denied any nausea vomiting Pulmonary: Her pressures of breath at rest and with exertion. Reports nonproductive cough. Neurologic denied any new focal deficits All inpatient medications were reviewed and appropriate changes in these m edications as dictated in the interval history and assessment and plan. PHYSICAL EXAMINATION: GENERAL: The patient is alert and oriented x3, not in any acute distress. Well developed, well nourished. HEENT: Pupils are round and equally reacting to light. EOMI. No scleral icterus. No conjunctival pallor. Normocephalic, atraumatic. No pharyngeal erythema. No thyromegaly. CARDIOVASCULAR: S1 and S2 present. No murmurs, rubs, or gallops. PULMONARY: Chest is tight there is diminished airflow arteriorly with inspiration, she has some faint crackles posterior bases ABDOMEN: Soft, nontender, nondistended, normoactive bowel sounds. No palpable organomegaly. MUSCULOSKELETAL: No joint swelling or deformity. EXTREMITIES: No cyanosis, clubbing, or pedal edema. NEUROLOGICAL: Gross neurological examination did not reveal any focal deficits. SKIN: No rashes. Assessment and plan -Acute hypoxic respiratory failure secondary to Covid 19 pneumonia, patient requiring 15L high flow oxygen support via nasal cannula. On zinc, vitamins, Olumiant, Decadron, albuterol -Hyperlipidemia -Hypothyroidism -Mildly elevated liver enzymes secondary to systemic inflammatory response from Covid 19 liver enzymes will be monitored -hyperglyemia s/t decadron will add novolog DVT prophylaxis: Lovenox GI Prophylaxis: Pepcid FULL CODE Repeat chest xray and labs in the AM. continue all other supportive care. Wean oxygen as tolerated. Prognosis guarded for this patient. Objective - Vital Signs Vital signs: Vital Signs Temp 98 F 08/11/21 10:40 Pulse 77 08/11/21 10:40 Resp 17 08/11/21 10:40 BP 156/79 08/11/21 10:40 Pulse Ox 92 L 08/11/21 10:40 Intake & Output 08/10/21 08/11/21 08/11/21 18:59 06:59 18:59 Intake Total 236 Balance 236 Intake: Oral 236 Other: Voiding Method Bedside Commode Bedside Commode # Voids 3 2 - Labs CBC & Chem 7: 08/11/21 08:45 08/11/21 08:45 Labs: Abnormal Lab Results - Last 24 Hours (Table) 08/10/21 08/10/21 08/11/21 Range/Units 16:31 21:37 07:49 Lymphocytes # (1.0-4.8) k/uL D-Dimer (<0.60) mg/L FEU BUN (7-17) mg/dL Glucose (74-99) mg/dL POC Glucose (mg/dL) 197 H 109 H 131 H (75-99) mg/dL AST (14-36) U/L ALT (4-34) U/L Alkaline Phosphatase (38-126) U/L Lactate Dehydrogenase (313-618) U/L Total Protein (6.3-8.2) g/dL Albumin (3.5-5.0) g/dL 08/11/21 08/11/21 08/11/21 Range/Units 08:45 08:45 08:45 Lymphocytes # 0.6 L (1.0-4.8) k/uL D-Dimer 1.05 H (<0.60) mg/L FEU BUN 20 H (7-17) mg/dL Glucose 149 H (74-99) mg/dL POC Glucose (mg/dL) (75-99) mg/dL AST 58 H (14-36) U/L ALT 59 H (4-34) U/L Alkaline Phosphatase 24 L (38-126) U/L Lactate Dehydrogenase 1004 H (313-618) U/L Total Protein 5.9 L (6.3-8.2) g/dL Albumin 3.2 L (3.5-5.0) g/dL 08/11/21 Range/Units 11:37 Lymphocytes # (1.0-4.8) k/uL D-Dimer (<0.60) mg/L FEU BUN (7-17) mg/dL Glucose (74-99) mg/dL POC Glucose (mg/dL) 169 H (75-99) mg/dL AST (14-36) U/L ALT (4-34) U/L Alkaline Phosphatase (38-126) U/L Lactate Dehydrogenase (313-618) U/L Total Protein (6.3-8.2) g/dL Albumin (3.5-5.0) g/dL Microbiology - Last 24 Hours (Table) 08/07/21 20:12 Blood Culture - Preliminary Blood No Growth after 72 hours 08/07/21 20:28 Blood Culture - Preliminary Blood No Growth after 72 hours Assessment and Plan Time with Patient: Greater than 30
[2021-08-11] MEDS: BARICITINIB 2 MG TABLET PO SCH (15:25)
[2021-08-11] MEDS: ALBUTEROL HFA INHALER INHALATION PRN (15:56)
[2021-08-11] MEDS ORDERED: POTASSIUM CHLORIDE ER 20 MEQ TAB.ER PO SCH (16:00)
[2021-08-11 16:42] LABS: Glucose,Whole Blood 138 mg/dL (75-99)
[2021-08-11] MEDS: MELATONIN 5 MG TABLET PO SCH (20:11)
[2021-08-11 20:40] LABS: Glucose,Whole Blood 185 mg/dL (75-99)
[2021-08-12] MEDS: LEVOTHYROXINE 100 MCG TAB PO SCH (05:36)
[2021-08-12 06:57] LABS: Glucose,Whole Blood 116 mg/dL (75-99)
[2021-08-12] MEDS: INSULIN ASPART (NovoLOG) 100 UNIT/ML VIAL SQ SCH ×4 (07:14→20:58)
[2021-08-12] MEDS: ALBUTEROL HFA INHALER INHALATION SCH ×3 (07:50→20:30)
[2021-08-12 07:51] LABS: Basophils % (A) 0 %; Eosinophils % (A) 0 %; HCT 37.2 % (34.0-46.0); Lymphocytes # (A) 0.6 k/uL (1.0-4.8); Lymphocytes % (A) 8 %; MCHC 32.4 g/dL (31.0-37.0); MCV 86.4 fL (80.0-100.0); Mean Platelet Volume 8.6; Monocytes # (A) 0.5 k/uL (0-1.0); Monocytes % (A) 7 %; Neutrophils # (A) 5.8 k/uL (1.3-7.7); Neutrophils % (A) 83 %; Platelet Count 293 k/uL (150-450); RDW 12.8 % (11.5-15.5)
--- NOTE | 2021-08-12 08:04 | XR ---
EXAMINATION TYPE: XR chest 1V portable DATE OF EXAM: 08/12/2021 COMPARISON: 08/10/2021 HISTORY: Cough TECHNIQUE: Single frontal view of the chest is obtained. FINDINGS: Patchy bilateral infiltrate. No pleural effusion or pneumothorax. Heart size normal. Scler otic density overlying the right likely related to bone atherosclerotic change aorta. Heart size norm al. IMPRESSION: Multifocal bilateral infiltrates
[2021-08-12 08:18] LABS: ALT 62 U/L (4-34); AST 48 U/L (14-36); African American GFR (CKD) >90 (>60 ml/min/1.73 sqM); Albumin 2.9 g/dL (3.5-5.0); Albumin/Globulin Ratio 1.1; Alkaline Phosphatase 21 U/L (38-126); Anion Gap 5 mmol/L; Blood Urea Nitrogen 17 mg/dL (7-17); Calcium 8.9 mg/dL (8.4-10.2); Carbon Dioxide 27 mmol/L (22-30); Chloride 104 mmol/L (98-107); Globulin 2.7 g/dL; Glucose 119 mg/dL (74-99); Non-African American GFR(CKD) >90 (>60 ml/min/1.73 sqM); Potassium 4.3 mmol/L (3.5-5.1); Sodium 136 mmol/L (137-145); Total Bilirubin 0.8 mg/dL (0.2-1.3); Total Protein 5.6 g/dL (6.3-8.2)
[2021-08-12] MEDS: ENOXAPARIN 40 MG/0.4 ML SYRINGE SQ SCH (08:40)
[2021-08-12] MEDS: ZINC SULFATE 220 MG CAP PO SCH (08:41)
[2021-08-12] MEDS: ALPRAZolam 0.25 MG TAB PO SCH ×2 (08:41→20:57)
[2021-08-12] MEDS: FAMOTIDINE 20 MG TAB PO SCH ×2 (08:41→20:58)
[2021-08-12] MEDS: ASCORBIC ACID 500 MG TAB PO SCH ×2 (08:41→20:57)
[2021-08-12] MEDS: CHOLECALCIFEROL 25 MCG (1000 IU) TABLET PO SCH (08:41)
[2021-08-12] MEDS: DEXAMETHASONE SOD PHOSPHATE 10 MG/ML 1 ML VIAL IVP SCH ×2 (08:41→20:57)
[2021-08-12] MEDS: SODIUM CHLORIDE 0.9% 1,000 ML IV SCH ×2 (08:42→20:57)
--- NOTE | 2021-08-12 13:23 | P.PN ---
Subjective Progress Note Date: 08/12/21 Principal diagnosis: Coronavirus associated pneumonia. This is a very pleasant 66-year-old female patient who follows with Dr. Bran as her primary care provider. She has hyperlipidemia, hypothyroidism. Approximately 12-13 days ago the patient developed a mild cough and shortness breath with fatigue, fever more so latex and some nausea with diarrhea. Poor appetite. She presented here to the emergency room last evening with progressive symptoms. She was found to be COVID-19 positive. She did not take the COVID-19 vaccination. Chest x-ray revealed bilateral patchy airspace disease. She was hypoxemic at 80% on room air. She is seen today in consultation on the regular medical floor. Currently sitting up in a chair at the bedside. Awake and alert. She is a dry nonproductive cough. Dyspnea on exertion. She is now up to 15 L high flow nasal cannula to maintain O2 saturations at 91%. White count 7.1. Hemoglobin 14.5. Platelets 257. Lymphocytes 0.7. D-dimer 1.10. Sodium 141. Potassium 4.0. Creatinine 0.59. Glucose 167. Ferritin 1177. LDH 1834. C-reactive protein 3.7. Pro-calcitonin 0.07. She's been initiated on Decadron, Lovenox, vitamin supplements. Outside the window for Remdesivir. Progress note dated 08/09/2021. 66-year-old female, again seen in room 480. She was admitted with a diagnosis of coronavirus associated pneumonia. She was seen by our consultative team, yesterday. Currently, the patient appears to be doing better. Currently, she is on 15 L high flow nasal cannula with saturations in the mid to high 90s. Temperature 97.4, heart rate 75, respiratory rate 18, and blood pressure 160/79. Laboratory data includes a white count of 6.21, hemoglobin 11.8, hematocrit 37.8, and platelet count 314,000. Sodium 145, potassium 3.6, chlorides 109, CO2 23, anion gap 13, BUN 23, and creatinine 0.6. Chest x-ray shows diffuse bilateral infiltrates. Progress note dated 08/12/2021. 66-year-old female who is again seen today in room 480. She was admitted with a diagnosis of coronavirus associated pneumonia. Currently, she is on 15 L high flow oxygen, and saline at 10 mL an hour. The patient states that she's feeling about the same. She is no better, and she is no worse. She is coughing. She is producing some clear phlegm. She denies any fever or chills. White count 7, hemoglobin 12, hematocrit 37.2, and platelet count 293,000. Sodium 136, potassium 4.3, chlorides 104, CO2 27, anion gap 5, BUN 17, and creatinine 0.54. Chest x-ray continues to show bilateral infiltrates. The chest x-ray is essentially unchanged in my opinion. Objective - Vital Signs Vital signs: Vital Signs Temp 97.6 F 08/12/21 09:26 Pulse 87 08/12/21 09:26 Resp 17 08/12/21 09:26 BP 135/74 08/12/21 09:26 Pulse Ox 94 L 08/12/21 09:26 Intake & Output 08/11/21 08/12/21 08/12/21 18:59 06:59 18:59 Intake Total 472 240 Balance 472 240 Intake: Oral 472 240 Other: Voiding Method Bedside Commode Bedside Commode Bedside Commode # Voids 1 2 # Bowel Movements 1 - Exam No acute distress, oriented 3. Mild tachypnea. Currently on 15 L high flow nasal cannula. No conversational dyspnea or use of accessory muscles. HEENT examination is grossly unremarkable. Neck supple. Full range of motion. No adenopathy thyromegaly or neck vein distention. Cardiovascular examination reveals regular rhythm rate. S1-S2 normal. No S3 or S4. No discernible murmur noted. Heart rate 87 bpm. Heart sounds are distant. Lungs reveal diffuse bilateral rhonchi. Breath sounds are equal bilaterally. There are no wheezes or crackles. Saturations are 94% on high flow nasal cannula at 15 L/m. Abdomen soft bowel sounds are heard. No masses or tenderness. Extremities are intact. No cyanosis clubbing or edema. Skin is without rash or lesion. Neurologic examination is brief but nonfocal. - Labs CBC & Chem 7: 08/12/21 07:04 08/12/21 07:03 Labs: Abnormal Lab Results - Last 24 Hours (Table) 08/11/21 08/11/21 08/12/21 Range/Units 16:40 20:39 06:48 Lymphocytes # (1.0-4.8) k/uL Sodium (137-145) mmol/L Glucose (74-99) mg/dL POC Glucose (mg/dL) 138 H 185 H 116 H (75-99) mg/dL AST (14-36) U/L ALT (4-34) U/L Alkaline Phosphatase (38-126) U/L Total Protein (6.3-8.2) g/dL Albumin (3.5-5.0) g/dL 08/12/21 08/12/21 Range/Units 07:03 07:04 Lymphocytes # 0.6 L (1.0-4.8) k/uL Sodium 136 L (137-145) mmol/L Glucose 119 H (74-99) mg/dL POC Glucose (mg/dL) (75-99) mg/dL AST 48 H (14-36) U/L ALT 62 H (4-34) U/L Alkaline Phosphatase 21 L (38-126) U/L Total Protein 5.6 L (6.3-8.2) g/dL Albumin 2.9 L (3.5-5.0) g/dL Microbiology - Last 24 Hours (Table) 08/07/21 20:12 Blood Culture - Preliminary Blood No Growth after 96 hours 08/07/21 20:28 Blood Culture - Preliminary Blood No Growth after 96 hours Assessment and Plan Assessment: Acute hypoxemic respiratory failure secondary to Covid 19 pneumonia/coronavirus associated pneumonia. Elevated inflammatory marker secondary to coronavirus infection. History of hyperlipidemia. History of hypothyroidism. Plan: Plan dated 08/09/2021. The patient's on albuterol inhaler, vitamin C, vitamin D3, and zinc, SERGEY, Decadron, and Lovenox. The patient states that she feels better today than she did yesterday. We will continue to follow make recommendations where appropriate. The patient was outside the window for REM. Prognosis is guarded. Plan dated 08/12/2021. The patient's lab work, and chest x-ray, from today, are reviewed. The chest x- ray in my opinion is essentially unchanged. Clinically, the patient feels like she is no better, but no worse. She remains on appropriate medications including Decadron twice a day, Lovenox, vitamin C, vitamin D3, zinc, and SERGEY. I did explain to the patient that she is receiving maximal medical therapy at this time. I did also mention that it was important that when she was in bed, that she move right side down, left side down, supine, and in prone position. Time with Patient: Less than 30
--- NOTE | 2021-08-12 13:38 | P.PN ---
Subjective Progress Note Date: 08/12/21 Patient is pleasant 66-year-old female came in with comments of shortness of breath found to be hypoxic patient is presently on 15 L of oxygen barely saturating well at 90% patient is found to have Covid 19 pneumonia with bilateral infiltrates patient was started on Decadron. Patient did not receive the code vaccine patient's symptoms has been going on for about 2 weeks. Patient's symptoms were episodes of diarrhea and generalized myalgias and fever patient presently doesn't have any fever. Patient has elevated inflammatory markers and d-dimer is 1.1. Patient is feeling better today patient that remains 15. L of oxygen. 08/10/2021 Patient is evaluated today sitting up in the chair. She does state that at times she is especially short of breath and she is very worried about her status. She is in Xanax every 8 hours as needed, we will change this to twice a day scheduled. She is on 15 L high flow nasal cannula with an oxygen saturation of 93%. Blood pressure is 147/74. She is afebrile. She is quite fatigued she is only able to transfer from the [facility] [place] [facility] and back to the chair. Labs today show a white count of 6.7. Chloride 110, potassium 3.9, sodium 142. Liver enzymes are mildly elevated. She is on Decadron, olumiant, and vitamins for COVID. 08/11/2021 Patient is evaluated today sitting up in a chair, she does state that her breathing is improving. She is still on a 15 L nasal cannula high flow maintaining oxygen saturation at 95%. Her blood pressure is 147/82. She is af ebrile, heart rate 73 sinus rhythm. Labs today show a white count of 6.3, d- dimer 1.05, LDH of 1004 CRP is within normal limits at 0.9. We will give her some oral potassium today is 3.7. Patient states that she did have a bowel movement today, she denies nausea, denies vomiting. Patient also have a repeat chest x-ray in the morning. States that her anxiety is feeling better with the changes to the Xanax. 08/12/2021 Patient is evaluated sitting in a chair, she does state her breathing is mildly improved. Lung sounds are improving, there is increased aeration. She was able to be weaned down to 13 L high flow nasal cannula. She was afebrile, blood pressure 135/74. Labs today show a white count of 7, sodium 136, liver enzymes are mildly elevated. Chest x-ray today shows multifocal bilateral infiltrates. ROS Constitutional: Denied any fatigue denied any fever reports feeling anxious Cardio vascular: denied any chest pain, palpitations Gastrointestinal denied any nausea vomiting Pulmonary: Her pressures of breath at rest and with exertion. Reports nonproductive cough. Neurologic denied any new focal deficits All inpatient medications were reviewed and appropriate changes in these medications as dictated in the interval history and assessment and plan. PHYSICAL EXAMINATION: GENERAL: The patient is alert and oriented x3, not in any acute distress. Well developed, well nourished. HEENT: Pupils are round and equally reacting to light. EOMI. No scleral icterus. No conjunctival pallor. Normocephalic, atraumatic. No pharyngeal erythema. No thyromegaly. CARDIOVASCULAR: S1 and S2 present. No murmurs, rubs, or gallops. PULMONARY: Chest is tight there is diminished airflow arteriorly with inspiration, she has some faint crackles posterior bases ABDOMEN: Soft, nontender, nondistended, normoactive bowel sounds. No palpable organomegaly. MUSCULOSKELETAL: No joint swelling or deformity. EXTREMITIES: No cyanosis, clubbing, or pedal edema. NEUROLOGICAL: Gross neurological examination did not reveal any focal deficits. SKIN: No rashes. Assessment and plan -Acute hypoxic respiratory failure secondary to Covid 19 pneumonia, on 13L high flow oxygen support via nasal cannula. On zinc, vitamins, Olumiant, Decadron, albuterol -Hyperlipidemia -Hypothyroidism -Mildly elevated liver enzymes secondary to systemic inflammatory response from Covid 19 liver enzymes will be monitored -hyperglyemia s/t decadron on novolog DVT prophylaxis: Lovenox GI Prophylaxis: Pepcid FULL CODE Continue all other supportive care. Wean oxygen as tolerated. Prognosis guarded for this patient. Objective - Vital Signs Vital signs: Vital Signs Temp 97.6 F 08/12/21 09:26 Pulse 87 08/12/21 09:26 Resp 17 08/12/21 09:26 BP 135/74 08/12/21 09:26 Pulse Ox 94 L 08/12/21 09:26 Intake & Output 08/11/21 08/12/21 08/12/21 18:59 06:59 18:59 Intake Total 472 240 Balance 472 240 Intake: Oral 472 240 Other: Voiding Method Bedside Commode Bedside Commode Bedside Commode # Voids 1 2 # Bowel Movements 1 - Labs CBC & Chem 7: 08/12/21 07:04 08/12/21 07:03 Labs: Abnormal Lab Results - Last 24 Hours (Table) 08/11/21 08/11/21 08/12/21 Range/Units 16:40 20:39 06:48 Lymphocytes # (1.0-4.8) k/uL Sodium (137-145) mmol/L Glucose (74-99) mg/dL POC Glucose (mg/dL) 138 H 185 H 116 H (75-99) mg/dL AST (14-36) U/L ALT (4-34) U/L Alkaline Phosphatase (38-126) U/L Total Protein (6.3-8.2) g/dL Albumin (3.5-5.0) g/dL 08/12/21 08/12/21 Range/Units 07:03 07:04 Lymphocytes # 0.6 L (1.0-4.8) k/uL Sodium 136 L (137-145) mmol/L Glucose 119 H (74-99) mg/dL POC Glucose (mg/dL) (75-99) mg/dL AST 48 H (14-36) U/L ALT 62 H (4-34) U/L Alkaline Phosphatase 21 L (38-126) U/L Total Protein 5.6 L (6.3-8.2) g/dL Albumin 2.9 L (3.5-5.0) g/dL Microbiology - Last 24 Hours (Table) 08/07/21 20:12 Blood Culture - Preliminary Blood No Growth after 96 hours 08/07/21 20:28 Blood Culture - Preliminary Blood No Growth after 96 hours Assessment and Plan Time with Patient: Greater than 30
[2021-08-12 14:08] VITALS: BMI 30.9
[2021-08-12] MEDS: BARICITINIB 2 MG TABLET PO SCH (15:54)
[2021-08-12 16:14] LABS: Glucose,Whole Blood 172 mg/dL (75-99)
[2021-08-12 19:26] LABS: Glucose,Whole Blood 127 mg/dL (75-99)
[2021-08-12] MEDS: MELATONIN 5 MG TABLET PO SCH (20:58)
[2021-08-13] MEDS: LEVOTHYROXINE 100 MCG TAB PO SCH (05:44)
[2021-08-13 06:54] LABS: Glucose,Whole Blood 109 mg/dL (75-99)
[2021-08-13] MEDS: INSULIN ASPART (NovoLOG) 100 UNIT/ML VIAL SQ SCH ×4 (06:58→20:44)
[2021-08-13] MEDS: ALBUTEROL HFA INHALER INHALATION SCH ×3 (07:45→20:55)
[2021-08-13 08:55] LABS: Basophils % (A) 0 %; Eosinophils % (A) 0 %; HCT 43.3 % (34.0-46.0); HGB 14.4 gm/dL (11.4-16.0); Lymphocytes # (A) 0.7 k/uL (1.0-4.8); Lymphocytes % (A) 8 %; MCH 28.6 pg (25.0-35.0); MCHC 33.2 g/dL (31.0-37.0); MCV 86.2 fL (80.0-100.0); Mean Platelet Volume 8.9; Monocytes # (A) 0.3 k/uL (0-1.0); Monocytes % (A) 3 %; Neutrophils # (A) 7.5 k/uL (1.3-7.7); Neutrophils % (A) 87 %; Platelet Count 380 k/uL (150-450); RBC 5.02 m/uL (3.80-5.40); RDW 13.3 % (11.5-15.5); WBC 8.7 k/uL (3.8-10.6)
[2021-08-13 09:08] LABS: ALT 54 U/L (4-34); AST 35 U/L (14-36); African American GFR (CKD) >90 (>60 ml/min/1.73 sqM); Albumin 3.3 g/dL (3.5-5.0); Albumin/Globulin Ratio 1.1; Alkaline Phosphatase <20 U/L (38-126); Anion Gap 8 mmol/L; Blood Urea Nitrogen 22 mg/dL (7-17); Calcium 9.5 mg/dL (8.4-10.2); Carbon Dioxide 25 mmol/L (22-30); Chloride 104 mmol/L (98-107); Globulin 2.9 g/dL; Glucose 138 mg/dL (74-99); Non-African American GFR(CKD) >90 (>60 ml/min/1.73 sqM); Potassium 4.4 mmol/L (3.5-5.1); Sodium 137 mmol/L (137-145); Total Protein 6.2 g/dL (6.3-8.2)
[2021-08-13] MEDS: ALPRAZolam 0.25 MG TAB PO SCH ×2 (09:26→20:44)
[2021-08-13] MEDS: ASCORBIC ACID 500 MG TAB PO SCH ×2 (09:26→20:44)
[2021-08-13] MEDS: FAMOTIDINE 20 MG TAB PO SCH ×2 (09:26→20:44)
[2021-08-13] MEDS: ENOXAPARIN 40 MG/0.4 ML SYRINGE SQ SCH (09:26)
[2021-08-13] MEDS: CHOLECALCIFEROL 25 MCG (1000 IU) TABLET PO SCH (09:26)
[2021-08-13] MEDS: ZINC SULFATE 220 MG CAP PO SCH (09:26)
[2021-08-13 11:33] LABS: Glucose,Whole Blood 93 mg/dL (75-99)
[2021-08-13] MEDS: DEXAMETHASONE SOD PHOSPHATE 10 MG/ML 1 ML VIAL IVP SCH ×2 (11:34→20:44)
[2021-08-13] MEDS: SODIUM CHLORIDE 0.9% 1,000 ML IV SCH ×2 (11:35→22:45)
--- NOTE | 2021-08-13 12:16 | P.PN ---
Subjective Progress Note Date: 08/13/21 Patient is pleasant 66-year-old female came in with comments of shortness of breath found to be hypoxic patient is presently on 15 L of oxygen barely saturating well at 90% patient is found to have Covid 19 pneumonia with bilateral infiltrates patient was started on Decadron. Patient did not receive the code vaccine patient's symptoms has been going on for about 2 weeks. Patient's symptoms were episodes of diarrhea and generalized myalgias and fever patient presently doesn't have any fever. Patient has elevated inflammatory markers and d-dimer is 1.1. Patient is feeling better today patient that remains 15. L of oxygen. 08/10/2021 Patient is evaluated today sitting up in the chair. She does state that at times she is especially short of breath and she is very worried about her status. She is in Xanax every 8 hours as needed, we will change this to twice a day scheduled. She is on 15 L high flow nasal cannula with an oxygen saturation of 93%. Blood pressure is 147/74. She is afebrile. She is quite fatigued she is only able to transfer from the [facility] and back to the chair. Labs today show a white count of 6.7. Chloride 110, potassium 3.9, sodium 142. Liver enzymes are mildly elevated. She is on Decadron, olumiant, and vitamins for COVID. 08/11/2021 Patient is evaluated today sitting up in a chair, she does state that her breathing is improving. She is still on a 15 L nasal cannula high flow maintaining oxygen saturation at 95%. Her blood pressure is 147/82. She is af ebrile, heart rate 73 sinus rhythm. Labs today show a white count of 6.3, d- dimer 1.05, LDH of 1004 CRP is within normal limits at 0.9. We will give her some oral potassium today is 3.7. Patient states that she did have a bowel movement today, she denies nausea, denies vomiting. Patient also have a repeat chest x-ray in the morning. States that her anxiety is feeling better with the changes to the Xanax. 08/12/2021 Patient is evaluated sitting in a chair, she does state her breathing is mildly improved. Lung sounds are improving, there is increased aeration. She was able to be weaned down to 13 L high flow nasal cannula. She was afebrile, blood pressure 135/74. Labs today show a white count of 7, sodium 136, liver enzymes are mildly elevated. Chest x-ray today shows multifocal bilateral infiltrates. 08/13/2021 Patient is sitting up in the chair, breathing is improving. Lungs are clear, she is able to ambulate to the bedside commode and chair. She is weaned down to 10 L high flow nasal cannula with an oxygen saturation 95%. White count normal today 8.7, lites are unremarkable, BUN mildly elevated at 22 and her glucose is 138, she is on Decadron. Total protein is 6.2, albumin 3.3. AST is normalized and ALT continues to trend down, 54 today. Patient is afebrile, heart rate 76 sinus rhythm, blood pressure 129/79. Patient is more optimistic about her prognosis, she continues on Xanax twice a day. ROS Constitutional: Denied any fatigue denied any fever reports feeling anxious Cardio vascular: denied any chest pain, palpitations Gastrointestinal denied any nausea vomiting Pulmonary: Her pressures of breath at rest and with exertion. Reports nonproductive cough. Neurologic denied any new focal deficits All inpatient medications were reviewed and appropriate changes in these medications as dictated in the interval history and assessment and plan. PHYSICAL EXAMINATION: GENERAL: The patient is alert and oriented x3, not in any acute distress. Well developed, well nourished. HEENT: Pupils are round and equally reacting to light. EOMI. No scleral icterus. No conjunctival pallor. Normocephalic, atraumatic. No pharyngeal erythema. No thyromegaly. CARDIOVASCULAR: S1 and S2 present. No murmurs, rubs, or gallops. PULMONARY: Chest is tight there is diminished airflow arteriorly with inspiration, she has some faint crackles posterior bases ABDOMEN: Soft, nontender, nondistended, normoactive bowel sounds. No palpable organomegaly. MUSCULOSKELETAL: No joint swelling or deformity. EXTREMITIES: No cyanosis, clubbing, or pedal edema. NEUROLOGICAL: Gross neurological examination did not reveal any focal deficits. SKIN: No rashes. Assessment and plan -Acute hypoxic respiratory failure secondary to Covid 19 pneumonia, on 10L high flow oxygen support via nasal cannula. On zinc, vitamins, Olumiant, Decadron, albuterol -Hyperlipidemia -Hypothyroidism -Mildly elevated liver enzymes secondary to systemic inflammatory response from Covid 19, improving -hyperglyemia s/t decadron on novolog DVT prophylaxis: Lovenox GI Prophylaxis: Pepcid FULL CODE Continue all other supportive care. Wean oxygen as tolerated. Encourage ambulation on room as tolerated, pulmonary recommended rotating positions from side to back to prone to side while in bed. Objective - Vital Signs Vital signs: Vital Signs Temp 97.4 F L 08/13/21 09:53 Pulse 76 08/13/21 09:53 Resp 17 08/13/21 09:53 BP 129/79 08/13/21 09:53 Pulse Ox 95 08/13/21 09:53 Intake & Output 08/12/21 08/13/21 08/13/21 18:59 06:59 18:59 Intake Total 220 Balance 220 Weight 79.379 kg Intake: Oral 220 Other: Voiding Method Bedside Commode # Voids 2 - Labs CBC & Chem 7: 08/13/21 08:10 08/13/21 08:10 Labs: Abnormal Lab Results - Last 24 Hours (Table) 08/12/21 08/12/21 08/13/21 Range/Units 16:11 19:25 06:53 Lymphocytes # (1.0-4.8) k/uL BUN (7-17) mg/dL Glucose (74-99) mg/dL POC Glucose (mg/dL) 172 H 127 H 109 H (75-99) mg/dL ALT (4-34) U/L Alkaline Phosphatase (38-126) U/L Total Protein (6.3-8.2) g/dL Albumin (3.5-5.0) g/dL 08/13/21 08/13/21 Range/Units 08:10 08:10 Lymphocytes # 0.7 L (1.0-4.8) k/uL BUN 22 H (7-17) mg/dL Glucose 138 H (74-99) mg/dL POC Glucose (mg/dL) (75-99) mg/dL ALT 54 H (4-34) U/L Alkaline Phosphatase <20 L (38-126) U/L Total Protein 6.2 L (6.3-8.2) g/dL Albumin 3.3 L (3.5-5.0) g/dL Microbiology - Last 24 Hours (Table) 08/07/21 20:12 Blood Culture - Preliminary Blood No Growth after 120 hours 08/07/21 20:28 Blood Culture - Preliminary Blood No Growth after 120 hours Assessment and Plan Time with Patient: Greater than 30
--- NOTE | 2021-08-13 14:40 | P.PN ---
Subjective Progress Note Date: 08/13/21 Principal diagnosis: Acute hypoxemic respiratory failure secondary to COVID-19 pneumonia This is a very pleasant 66-year-old female patient who follows with Dr. Bran as her primary care provider. She has hyperlipidemia, hypothyroidism. Approximately 12-13 days ago the patient developed a mild cough and shortness breath with fatigue, fever more so latex and some nausea with diarrhea. Poor appetite. She presented here to the emergency room last evening with progressive symptoms. She was found to be COVID-19 positive. She did not take the COVID-19 vaccination. Chest x-ray revealed bilateral patchy airspace disease. She was hypoxemic at 80% on room air. She is seen today in consultation on the regular medical floor. Currently sitting up in a chair at the bedside. Awake and alert. She is a dry nonproductive cough. Dyspnea on exertion. She is now up to 15 L high flow nasal cannula to maintain O2 saturations at 91%. White count 7.1. Hemoglobin 14.5. Platelets 257. Lymphocytes 0.7. D-dimer 1.10. Sodium 141. Potassium 4.0. Creatinine 0.59. Glucose 167. Ferritin 1177. LDH 1834. C-reactive protein 3.7. Pro-calcitonin 0.07. She's been initiated on Decadron, Lovenox, vitamin supplements. Outside the window for Remdesivir. Progress note dated 08/09/2021. 66-year-old female, again seen in room 480. She was admitted with a diagnosis of coronavirus associated pneumonia. She was seen by our consultative team, yesterday. Currently, the patient appears to be doing better. Currently, she is on 15 L high flow nasal cannula with saturations in the mid to high 90s. Temperature 97.4, heart rate 75, respiratory rate 18, and blood pressure 160/79. Laboratory data includes a white count of 6.21, hemoglobin 11.8, hematocrit 37.8, and platelet count 314,000. Sodium 145, potassium 3.6, chlorides 109, CO2 23, anion gap 13, BUN 23, and creatinine 0.6. Chest x-ray shows diffuse bilateral infiltrates. The patient is seen today 08/10/2021 in follow-up on the regular medical floor. She is currently sitting up in a chair at the bedside. Awake and alert in no acute distress. Still requiring 15 L high flow nasal cannula. Requiring some X anax for anxiety. Chest x-ray continues to show bilateral patchy infiltrates. She's currently afebrile. Hemodynamically stable. Blood cultures reveal no growth. White count 6.7. Hemoglobin 11.8. Lymphocytes 0.8. Sodium 142. Potassium 3.9. Creatinine 0.54. AST 57. ALT 57. We'll calcitonin was 0.07. She is continued on Baricitinib, Decadron, Lovenox, vitamin supplements. Remains on bronchodilators. The patient is seen today 08/11/2021 in follow-up on the regular medical floor. She is awake and alert in no acute distress. She is sitting up in a chair at the bedside. She is still requiring 15 L high flow nasal cannula to maintain O2 saturations at 92% currently. Afebrile. Hemodynamically stable. White count 6.3. Hemoglobin 12.9. Lymphocytes 0.6. D-dimer 1.05. Sodium 137. Potassium 3.7. Creatinine 0.63. Glucose 149. AST 58, ALT 59. LDH 1004. C-reactive protein 0.9. She is continued on Baricitinib, Decadron, Lovenox, bronchodilators, vitamin supplements. 0.9 normal saline at 75 ML's per hour. The patient is seen today 08/12/2021 in follow-up on the regular medical floor. She is currently sitting up in a chair at the bedside. Awake and alert in no acute distress. Breathing a bit easier today compared to yesterday. She is down to 10 L high flow nasal cannula.. Feeling a bit stronger. She remains afebrile. Hemodynamically stable. Blood cultures reveal no growth. White count 8.7. Hemoglobin 14.4. Platelet count 380,000. Lymphocytes 0.7. Sodium 137. Potassium 4.4. Creatinine 0.58. Glucose 138. AST 35. ALT 54. She is continued on Baricitinib, Decadron, Lovenox, vitamin supplements. She is continued on 0.9 saline at 75 ML's per hour. Objective - Vital Signs Vital signs: Vital Signs Temp 97.4 F L 08/13/21 09:53 Pulse 76 08/13/21 09:53 Resp 17 08/13/21 09:53 BP 129/79 08/13/21 09:53 Pulse Ox 95 08/13/21 09:53 Intake & Output 08/12/21 08/13/21 08/13/21 18:59 06:59 18:59 Intake Total 220 Balance 220 Weight 79.379 kg Intake: Oral 220 Other: Voiding Method Bedside Commode # Voids 2 - Exam GENERAL EXAM: Alert, pleasant 66-year-old female patient, on 10 L high flow nasal cannula, up in a chair at the bedside, fairly comfortable in mild respiratory distress. HEAD: Normocephalic. EYES: Normal reaction of pupils, equal size. NOSE: Clear with pink turbinates. THROAT: No erythema or exudates. NECK: No masses, no JVD. CHEST: No chest wall deformity. LUNGS: Equal air entry with crackles in the bilateral bases. CVS: S1 and S2 normal with no audible murmur, regular rhythm. ABDOMEN: No hepatosplenomegaly, normal bowel sounds, no guarding or rigidity. SPINE: No scoliosis or deformity SKIN: No rashes CENTRAL NERVOUS SYSTEM: No focal deficits, tone is normal in all 4 extremities. EXTREMITIES: There is no peripheral edema. No clubbing, no cyanosis. Peripher al pulses are intact. - Labs CBC & Chem 7: 08/13/21 08:10 08/13/21 08:10 Labs: Abnormal Lab Results - Last 24 Hours (Table) 08/12/21 08/12/21 08/13/21 Range/Units 16:11 19:25 06:53 Lymphocytes # (1.0-4.8) k/uL BUN (7-17) mg/dL Glucose (74-99) mg/dL POC Glucose (mg/dL) 172 H 127 H 109 H (75-99) mg/dL ALT (4-34) U/L Alkaline Phosphatase (38-126) U/L Total Protein (6.3-8.2) g/dL Albumin (3.5-5.0) g/dL 08/13/21 08/13/21 Range/Units 08:10 08:10 Lymphocytes # 0.7 L (1.0-4.8) k/uL BUN 22 H (7-17) mg/dL Glucose 138 H (74-99) mg/dL POC Glucose (mg/dL) (75-99) mg/dL ALT 54 H (4-34) U/L Alkaline Phosphatase <20 L (38-126) U/L Total Protein 6.2 L (6.3-8.2) g/dL Albumin 3.3 L (3.5-5.0) g/dL Microbiology - Last 24 Hours (Table) 08/07/21 20:12 Blood Culture - Preliminary Blood No Growth after 120 hours 08/07/21 20:28 Blood Culture - Preliminary Blood No Growth after 120 hours Assessment and Plan Assessment: 1 Acute hypoxemic respiratory failure secondary to COVID-19 pneumonia. Outside the window for Remdesivir. Patient is not vaccinated. Initiated on Baricitinib 08/07/2021. 2 Elevated inflammatory markers secondary to above 3 Hyperlipidemia 4 Hypothyroidism Plan: The patient was seen and evaluated by Dr. Camp Improving and down to 10 L high flow nasal cannula Continue Lovenox, Decadron, vitamin supplements Continue Baricitinib Titrate the FiO2 as tolerated Follow-up inflammatory markers and chest x-ray in the a.m. We will continue to follow and make further recommendations based on her clinical status I, the cosigning physician, performed a history & physical examination of the patient. Lungs sounds with crackles in the bilateral bases. Maintaining good O2 saturations in the 90s on 10 L high flow nasal cannula. I discussed the assessment and plan of care with my nurse practitioner, Maggie Tarango. I attest to the above note as dictated by her.
[2021-08-13] MEDS: BARICITINIB 2 MG TABLET PO SCH (16:10)
[2021-08-13] MEDS: ALBUTEROL HFA INHALER INHALATION PRN (16:16)
[2021-08-13 16:57] LABS: Glucose,Whole Blood 137 mg/dL (75-99)
[2021-08-13 20:39] LABS: Glucose,Whole Blood 156 mg/dL (75-99)
[2021-08-13] MEDS: MELATONIN 5 MG TABLET PO SCH (20:44)
[2021-08-14] MEDS: LEVOTHYROXINE 100 MCG TAB PO SCH (05:31)
[2021-08-14 07:28] LABS: Glucose,Whole Blood 109 mg/dL (75-99)
[2021-08-14] MEDS: ALPRAZolam 0.25 MG TAB PO SCH ×2 (07:49→20:43)
[2021-08-14] MEDS: CHOLECALCIFEROL 25 MCG (1000 IU) TABLET PO SCH (07:50)
[2021-08-14] MEDS: ZINC SULFATE 220 MG CAP PO SCH (07:50)
[2021-08-14] MEDS: FAMOTIDINE 20 MG TAB PO SCH ×2 (07:50→20:43)
[2021-08-14] MEDS: ASCORBIC ACID 500 MG TAB PO SCH ×2 (07:50→20:43)
[2021-08-14] MEDS: DEXAMETHASONE SOD PHOSPHATE 10 MG/ML 1 ML VIAL IVP SCH ×2 (07:51→20:43)
[2021-08-14] MEDS: ENOXAPARIN 40 MG/0.4 ML SYRINGE SQ SCH (07:51)
[2021-08-14] MEDS: INSULIN ASPART (NovoLOG) 100 UNIT/ML VIAL SQ SCH ×4 (07:52→20:38)
[2021-08-14 07:56] LABS: Basophils % (A) 0 %; Eosinophils % (A) 0 %; HCT 37.9 % (34.0-46.0); HGB 12.5 gm/dL (11.4-16.0); Lymphocytes # (A) 0.6 k/uL (1.0-4.8); Lymphocytes % (A) 8 %; MCH 28.5 pg (25.0-35.0); MCHC 32.9 g/dL (31.0-37.0); MCV 86.7 fL (80.0-100.0); Mean Platelet Volume 8.4; Monocytes # (A) 0.4 k/uL (0-1.0); Monocytes % (A) 6 %; Neutrophils # (A) 6.4 k/uL (1.3-7.7); Neutrophils % (A) 84 %; Platelet Count 286 k/uL (150-450); RBC 4.37 m/uL (3.80-5.40); WBC 7.6 k/uL (3.8-10.6)
[2021-08-14 08:15] LABS: ALT 43 U/L (4-34); AST 25 U/L (14-36); African American GFR (CKD) >90 (>60 ml/min/1.73 sqM); Albumin/Globulin Ratio 1.1; Alkaline Phosphatase 21 U/L (38-126); Anion Gap 3 mmol/L; Blood Urea Nitrogen 20 mg/dL (7-17); Calcium 9.3 mg/dL (8.4-10.2); Carbon Dioxide 29 mmol/L (22-30); Chloride 103 mmol/L (98-107); Globulin 2.7 g/dL; Glucose 110 mg/dL (74-99); LDH 732 U/L (313-618); Non-African American GFR(CKD) >90 (>60 ml/min/1.73 sqM); Potassium 4.7 mmol/L (3.5-5.1); Sodium 135 mmol/L (137-145); Total Bilirubin 0.8 mg/dL (0.2-1.3); Total Protein 5.7 g/dL (6.3-8.2)
[2021-08-14] MEDS: ALBUTEROL HFA INHALER INHALATION SCH ×3 (08:35→20:03)
[2021-08-14 09:27] LABS: C Reactive Protein 0.5 mg/dL (<1.0)
[2021-08-14] MEDS: SODIUM CHLORIDE 0.9% 1,000 ML IV SCH (10:53)
[2021-08-14 11:51] LABS: Glucose,Whole Blood 104 mg/dL (75-99)
--- NOTE | 2021-08-14 14:27 | P.PN ---
Subjective Progress Note Date: 08/14/21 Principal diagnosis: Acute hypoxemic respiratory failure secondary to COVID-19 pneumonia This is a very pleasant 66-year-old female patient who follows with Dr. Bran as her primary care provider. She has hyperlipidemia, hypothyroidism. Approximately 12-13 days ago the patient developed a mild cough and shortness breath with fatigue, fever more so latex and some nausea with diarrhea. Poor appetite. She presented here to the emergency room last evening with progressive symptoms. She was found to be COVID-19 positive. She did not take the COVID-19 vaccination. Chest x-ray revealed bilateral patchy airspace disease. She was hypoxemic at 80% on room air. She is seen today in consultation on the regular medical floor. Currently sitting up in a chair at the bedside. Awake and alert. She is a dry nonproductive cough. Dyspnea on exertion. She is now up to 15 L high flow nasal cannula to maintain O2 saturations at 91%. White count 7.1. Hemoglobin 14.5. Platelets 257. Lymphocytes 0.7. D-dimer 1.10. Sodium 141. Potassium 4.0. Creatinine 0.59. Glucose 167. Ferritin 1177. LDH 1834. C-reactive protein 3.7. Pro-calcitonin 0.07. She's been initiated on Decadron, Lovenox, vitamin supplements. Outside the window for Remdesivir. Progress note dated 08/09/2021. 66-year-old female, again seen in room 480. She was admitted with a diagnosis of coronavirus associated pneumonia. She was seen by our consultative team, yesterday. Currently, the patient appears to be doing better. Currently, she is on 15 L high flow nasal cannula with saturations in the mid to high 90s. Temperature 97.4, heart rate 75, respiratory rate 18, and blood pressure 160/79. Laboratory data includes a white count of 6.21, hemoglobin 11.8, hematocrit 37.8, and platelet count 314,000. Sodium 145, potassium 3.6, chlorides 109, CO2 23, anion gap 13, BUN 23, and creatinine 0.6. Chest x-ray shows diffuse bilateral infiltrates. The patient is seen today 08/10/2021 in follow-up on the regular medical floor. She is currently sitting up in a chair at the bedside. Awake and alert in no acute distress. Still requiring 15 L high flow nasal cannula. Requiring some X anax for anxiety. Chest x-ray continues to show bilateral patchy infiltrates. She's currently afebrile. Hemodynamically stable. Blood cultures reveal no growth. White count 6.7. Hemoglobin 11.8. Lymphocytes 0.8. Sodium 142. Potassium 3.9. Creatinine 0.54. AST 57. ALT 57. We'll calcitonin was 0.07. She is continued on Baricitinib, Decadron, Lovenox, vitamin supplements. Remains on bronchodilators. The patient is seen today 08/11/2021 in follow-up on the regular medical floor. She is awake and alert in no acute distress. She is sitting up in a chair at the bedside. She is still requiring 15 L high flow nasal cannula to maintain O2 saturations at 92% currently. Afebrile. Hemodynamically stable. White count 6.3. Hemoglobin 12.9. Lymphocytes 0.6. D-dimer 1.05. Sodium 137. Potassium 3.7. Creatinine 0.63. Glucose 149. AST 58, ALT 59. LDH 1004. C-reactive protein 0.9. She is continued on Baricitinib, Decadron, Lovenox, bronchodilators, vitamin supplements. 0.9 normal saline at 75 ML's per hour. The patient is seen today 08/13/2021 in follow-up on the regular medical floor. She is currently sitting up in a chair at the bedside. Awake and alert in no acute distress. Breathing a bit easier today compared to yesterday. She is down to 10 L high flow nasal cannula.. Feeling a bit stronger. She remains afebrile. Hemodynamically stable. Blood cultures reveal no growth. White count 8.7. Hemoglobin 14.4. Platelet count 380,000. Lymphocytes 0.7. Sodium 137. Potassium 4.4. Creatinine 0.58. Glucose 138. AST 35. ALT 54. She is continued on Baricitinib, Decadron, Lovenox, vitamin supplements. She is continued on 0.9 saline at 75 ML's per hour. The patient is seen today 08/14/2021 in follow-up on the regular medical floor. She is currently sitting up in a chair at the bedside. Awake and alert in no acute distress. She is getting quite a bit better. She is down to 4 L nasal cannula to maintain O2 saturations in the 90s. White count 7.6. Hemoglobin 12.5. Lymphocytes 0.6. D-dimer 0.67. Sodium 135. Potassium 4.7. Creatinine 0.57. Glucose 110. LDH 732. C-reactive protein 0.5. She remains on Decadron, Lovenox, Baricitinib, vitamin supplements. IV with normal saline at 75 ML's per hour. Her appetite is good. Objective - Vital Signs Vital signs: Vital Signs Temp 97.9 F 08/14/21 10:32 Pulse 83 08/14/21 10:32 Resp 18 08/14/21 10:32 BP 123/74 08/14/21 10:32 Pulse Ox 91 L 08/14/21 10:32 Intake & Output 08/13/21 08/14/21 08/14/21 18:59 06:59 18:59 Other: Voiding Method Bedside Commode # Voids 3 5 - Exam GENERAL EXAM: Alert, pleasant 66-year-old female patient, on 4 L high flow nasal cannula, up in a chair at the bedside, fairly comfortable in mild respiratory distress. HEAD: Normocephalic. EYES: Normal reaction of pupils, equal size. NOSE: Clear with pink turbinates. THROAT: No erythema or exudates. NECK: No masses, no JVD. CHEST: No chest wall deformity. LUNGS: Equal air entry with crackles in the bilateral bases. CVS: S1 and S2 normal with no audible murmur, regular rhythm. ABDOMEN: No hepatosplenomegaly, normal bowel sounds, no guarding or rigidity. SPINE: No scoliosis or deformity SKIN: No rashes CENTRAL NERVOUS SYSTEM: No focal deficits, tone is normal in all 4 extremities. EXTREMITIES: There is no peripheral edema. No clubbing, no cyanosis. Peripher al pulses are intact. - Labs CBC & Chem 7: 08/14/21 07:20 08/14/21 07:20 Labs: Abnormal Lab Results - Last 24 Hours (Table) 08/13/21 08/13/21 08/14/21 Range/Units 16:54 20:37 07:20 Lymphocytes # 0.6 L (1.0-4.8) k/uL D-Dimer (<0.60) mg/L FEU Sodium (137-145) mmol/L BUN (7-17) mg/dL Glucose (74-99) mg/dL POC Glucose (mg/dL) 137 H 156 H (75-99) mg/dL ALT (4-34) U/L Alkaline Phosphatase (38-126) U/L Lactate Dehydrogenase (313-618) U/L Total Protein (6.3-8.2) g/dL Albumin (3.5-5.0) g/dL 08/14/21 08/14/21 08/14/21 Range/Units 07:20 07:20 07:27 Lymphocytes # (1.0-4.8) k/uL D-Dimer 0.67 H (<0.60) mg/L FEU Sodium 135 L (137-145) mmol/L BUN 20 H (7-17) mg/dL Glucose 110 H (74-99) mg/dL POC Glucose (mg/dL) 109 H (75-99) mg/dL ALT 43 H (4-34) U/L Alkaline Phosphatase 21 L (38-126) U/L Lactate Dehydrogenase 732 H (313-618) U/L Total Protein 5.7 L (6.3-8.2) g/dL Albumin 3.0 L (3.5-5.0) g/dL 08/14/21 Range/Units 11:50 Lymphocytes # (1.0-4.8) k/uL D-Dimer (<0.60) mg/L FEU Sodium (137-145) mmol/L BUN (7-17) mg/dL Glucose (74-99) mg/dL POC Glucose (mg/dL) 104 H (75-99) mg/dL ALT (4-34) U/L Alkaline Phosphatase (38-126) U/L Lactate Dehydrogenase (313-618) U/L Total Protein (6.3-8.2) g/dL Albumin (3.5-5.0) g/dL Microbiology - Last 24 Hours (Table) 08/07/21 20:28 Blood Culture - Final Blood No Growth after 144 hours 08/07/21 20:12 Blood Culture - Final Blood No Growth after 144 hours Assessment and Plan Assessment: 1 Acute hypoxemic respiratory failure secondary to COVID-19 pneumonia. Outside the window for Remdesivir. Patient is not vaccinated. Initiated on Baricitinib 08/07/2021. 2 Elevated inflammatory markers secondary to above 3 Hyperlipidemia 4 Hypothyroidism Plan: The patient was seen and evaluated by Dr. Camp Improving and down to 4 L nasal cannula She could be discharged on home oxygen Complete a total of 10 days of Decadron Not be home on Baricitinib Continue multivitamins Follow-up in the office in 3-4 weeks We will repeat a chest x-ray then I, the cosigning physician, performed a history & physical examination of the patient. Lungs sounds with crackles in the bilateral bases. Maintaining good O2 saturations in the 90s on 4 L nasal cannula. I discussed the assessment and plan of care with my nurse practitioner, Maggie Tarango. I attest to the above note as dictated by her.
[2021-08-14] MEDS: BARICITINIB 2 MG TABLET PO SCH (14:53)
[2021-08-14 16:45] LABS: Glucose,Whole Blood 116 mg/dL (75-99)
--- NOTE | 2021-08-14 17:24 | P.PN ---
Subjective Progress Note Date: 08/14/21 Principal diagnosis: COVID-19 pneumonia Ms. Walters is a 66-year-old female with a past medical history of hyperlipidemia, thyroid disorder admitted to the hospital for COVID-19 pneumonia. 08/14/2021- patient is seen and examined at the bedside today. She is sitting in a chair comfortably and watching out through the window. She is saturating at 93% on 4 L of oxygen. On reviewing the vitals temperature of 98, heart rate 82, respiratory 20, blood pressure 1 16 x 73. Patient denies having any difficulty in breathing cough or chest pain. She denies having any fevers chill s or rigors. No palpitations. She denies having any dysuria or hematuria. On reviewing the labs from this morning hemoglobin stable at 12.5. D-dimer 0.67. Sodium 1354.7, chloride 103, bicarbonate 29, creatinine 20, creatinine 0.57. Albumin 3.0. Patient's medications are reviewed Active Medications Acetaminophen (Acetaminophen Tab 500 Mg Tab) 1,000 mg PO Q6HR PRN PRN Reason: Fever>101 Albuterol Sulfate (Albuterol Hfa Inhaler) 2 puff INHALATION RT-Q6H PRN PRN Reason: Shortness Of Breath Or Wheezing Last Admin: 08/13/21 16:16 Dose: 2 puff Documented by: Albuterol Sulfate (Albuterol Hfa Inhaler) 2 puff INHALATION RT-TID [facility] Last Admin: 08/14/21 11:46 Dose: 2 puff Documented by: Alprazolam (Alprazolam 0.25 Mg Tab) 0.25 mg PO BID [facility] Last Admin: 08/14/21 07:49 Dose: 0.25 mg Documented by: Ascorbic Acid (Ascorbic Acid 500 Mg Tab) 500 mg PO BID [facility] Last Admin: 08/14/21 07:50 Dose: 500 mg Documented by: Baricitinib (Baricitinib 2 Mg Tablet) 4 mg PO DAILY@1500 [facility] Stop: 08/21/21 15:01 Last Admin: 08/14/21 14:53 Dose: 4 mg Documented by: Cholecalciferol (Cholecalciferol 25 Mcg (1000 Iu) Tablet) 125 mcg PO DAILY [facility] Last Admin: 08/14/21 07:50 Dose: 125 mcg Documented by: Dexamethasone Sodium Phosphate (Dexamethasone Sod Phosphate 10 Mg/Ml 1 Ml Vial) 6 mg IVP BID [facility] Last Admin: 08/14/21 07:51 Dose: 6 mg Documented by: Enoxaparin Sodium (Enoxaparin 40 Mg/0.4 Ml Syringe) 40 mg SQ DAILY [facility] Last Admin: 08/14/21 07:51 Dose: 40 mg Documented by: Famotidine (Famotidine 20 Mg Tab) 20 mg PO BID [facility] Last Admin: 08/14/21 07:50 Dose: 20 mg Documented by: Sodium Chloride (Saline 0.9%) 1,000 mls @ 75 mls/hr IV .[id number] [facility] Last Admin: 08/14/21 10:53 Dose: 75 mls/hr Documented by: Insulin Aspart (Insulin Aspart (Novolog) 100 Unit/Ml Vial) 0 unit SQ ACHS [facility]; Protocol Last Admin: 08/14/21 16:57 Dose: Not Given Documented by: Levothyroxine Sodium (Levothyroxine 100 Mcg Tab) 100 mcg PO 0630 [facility] Last Admin: 08/14/21 05:31 Dose: 100 mcg Documented by: Melatonin (Melatonin 5 Mg Tablet) 5 mg PO HS [facility] Last Admin: 08/13/21 20:44 Dose: 5 mg Documented by: Naloxone HCl (Naloxone 0.4 Mg/Ml 1 Ml Vial) 0.2 mg IV Q2M PRN PRN Reason: Opioid Reversal Zinc Sulfate (Zinc Sulfate 220 Mg Cap) 220 mg PO DAILY [facility] Last Admin: 08/14/21 07:50 Dose: 220 mg Documented by: Objective - Vital Signs Vital signs: Vital Signs Temp 98.0 F 08/14/21 14:00 Pulse 82 08/14/21 14:00 Resp 20 08/14/21 14:00 BP 116/73 08/14/21 14:00 Pulse Ox 93 L 08/14/21 14:00 Intake & Output 08/13/21 08/14/21 08/14/21 18:59 06:59 18:59 Other: Voiding Method Bedside Commode # Voids 3 5 - Exam PHYSICAL EXAMINATION: GENERAL: The patient is alert and oriented x3, not in any acute distress. Well developed, well nourished. HEENT: Pupils are round and equally reacting to light. EOMI. No scleral icterus. No conjunctival pallor. Normocephalic, atraumatic. CARDIOVASCULAR: S1 and S2 present. No murmurs, rubs, or gallops. PULMONARY: Chest diminished air flow. Few crackles at the posterior lung bases. ABDOMEN: Soft, nontender, nondistended, normoactive bowel sounds. No palpable organomegaly. MUSCULOSKELETAL: No joint swelling or deformity. EXTREMITIES: No cyanosis, clubbing, or pedal edema. NEUROLOGICAL: Gross neurological examination did not reveal any focal deficits. SKIN: No rashes. - Labs CBC & Chem 7: 08/14/21 07:08/14/21 07:20 Labs: Abnormal Lab Results - Last 24 Hours (Table) 08/13/21 08/13/21 08/14/21 Range/Units 16:54 20:37 07:20 Lymphocytes # 0.6 L (1.0-4.8) k/uL D-Dimer (<0.60) mg/L FEU Sodium (137-145) mmol/L BUN (7-17) mg/dL Glucose (74-99) mg/dL POC Glucose (mg/dL) 137 H 156 H (75-99) mg/dL ALT (4-34) U/L Alkaline Phosphatase (38-126) U/L Lactate Dehydrogenase (313-618) U/L Total Protein (6.3-8.2) g/dL Albumin (3.5-5.0) g/dL 08/14/21 08/14/21 08/14/21 Range/Units 07:20 07:20 07:27 Lymphocytes # (1.0-4.8) k/uL D-Dimer 0.67 H (<0.60) mg/L FEU Sodium 135 L (137-145) mmol/L BUN 20 H (7-17) mg/dL Glucose 110 H (74-99) mg/dL POC Glucose (mg/dL) 109 H (75-99) mg/dL ALT 43 H (4-34) U/L Alkaline Phosphatase 21 L (38-126) U/L Lactate Dehydrogenase 732 H (313-618) U/L Total Protein 5.7 L (6.3-8.2) g/dL Albumin 3.0 L (3.5-5.0) g/dL 08/14/21 Range/Units 11:50 Lymphocytes # (1.0-4.8) k/uL D-Dimer (<0.60) mg/L FEU Sodium (137-145) mmol/L BUN (7-17) mg/dL Glucose (74-99) mg/dL POC Glucose (mg/dL) 104 H (75-99) mg/dL ALT (4-34) U/L Alkaline Phosphatase (38-126) U/L Lactate Dehydrogenase (313-618) U/L Total Protein (6.3-8.2) g/dL Albumin (3.5-5.0) g/dL Microbiology - Last 24 Hours (Table) 08/07/21 20:28 Blood Culture - Final Blood No Growth after 144 hours 08/07/21 20:12 Blood Culture - Final Blood No Growth after 144 hours Assessment and Plan Assessment: ASSESSMENT Acute hypoxic respiratory failure secondary to COVID-19 pneumonia Hyperlipidemia Hypothyroidism Mild transaminitis Hyperglycemia secondary to steroid use GI DVT prophylaxis PLAN: Patient to be continued on oxygen support to maintain saturations above 90%. She is to be continued on steroids, anticoagulation, breathing treatments and multivitamins. We'll adjust the dose of insulin depending upon her blood sugars as she is on steroids. Patient requiring 4 L of oxygen, we will arrange for home oxygen therapy. Anticipate discharge in the next 24-48 hours.
[2021-08-14 20:30] LABS: Glucose,Whole Blood 127 mg/dL (75-99)
[2021-08-14] MEDS: MELATONIN 5 MG TABLET PO SCH (20:43)
[2021-08-15] MEDS: SODIUM CHLORIDE 0.9% 1,000 ML IV SCH ×2 (01:42→14:19)
[2021-08-15] MEDS: LEVOTHYROXINE 100 MCG TAB PO SCH (05:32)
[2021-08-15 07:12] LABS: Glucose,Whole Blood 95 mg/dL (75-99)
[2021-08-15] MEDS: DEXAMETHASONE SOD PHOSPHATE 10 MG/ML 1 ML VIAL IVP SCH ×2 (07:48→20:36)
[2021-08-15] MEDS: FAMOTIDINE 20 MG TAB PO SCH ×2 (07:48→20:37)
[2021-08-15] MEDS: ZINC SULFATE 220 MG CAP PO SCH (07:48)
[2021-08-15] MEDS: CHOLECALCIFEROL 25 MCG (1000 IU) TABLET PO SCH (07:48)
[2021-08-15] MEDS: ASCORBIC ACID 500 MG TAB PO SCH ×2 (07:48→20:37)
[2021-08-15] MEDS: ALPRAZolam 0.25 MG TAB PO SCH ×2 (07:48→20:37)
[2021-08-15] MEDS: INSULIN ASPART (NovoLOG) 100 UNIT/ML VIAL SQ SCH ×4 (07:49→22:49)
[2021-08-15] MEDS: ENOXAPARIN 40 MG/0.4 ML SYRINGE SQ SCH (07:49)
[2021-08-15] MEDS: ALBUTEROL HFA INHALER INHALATION SCH ×3 (08:14→20:12)
[2021-08-15 08:24] LABS: Basophils % (A) 0 %; Eosinophils % (A) 0 %; HCT 40.5 % (34.0-46.0); HGB 13.2 gm/dL (11.4-16.0); Lymphocytes # (A) 0.7 k/uL (1.0-4.8); Lymphocytes % (A) 9 %; MCH 28.5 pg (25.0-35.0); MCHC 32.7 g/dL (31.0-37.0); MCV 87.3 fL (80.0-100.0); Mean Platelet Volume 8.8; Monocytes # (A) 0.3 k/uL (0-1.0); Monocytes % (A) 4 %; Neutrophils # (A) 7.3 k/uL (1.3-7.7); Neutrophils % (A) 86 %; Platelet Count 285 k/uL (150-450); RBC 4.64 m/uL (3.80-5.40); RDW 13.1 % (11.5-15.5); WBC 8.5 k/uL (3.8-10.6)
[2021-08-15 08:40] LABS: ALT 39 U/L (4-34); AST 28 U/L (14-36); African American GFR (CKD) >90 (>60 ml/min/1.73 sqM); Albumin 3.2 g/dL (3.5-5.0); Albumin/Globulin Ratio 1.2; Alkaline Phosphatase 21 U/L (38-126); Anion Gap 5 mmol/L; Blood Urea Nitrogen 22 mg/dL (7-17); Calcium 8.9 mg/dL (8.4-10.2); Carbon Dioxide 26 mmol/L (22-30); Chloride 105 mmol/L (98-107); Globulin 2.6 g/dL; Glucose 113 mg/dL (74-99); Non-African American GFR(CKD) >90 (>60 ml/min/1.73 sqM); Potassium 4.3 mmol/L (3.5-5.1); Sodium 136 mmol/L (137-145); Total Bilirubin 0.9 mg/dL (0.2-1.3); Total Protein 5.8 g/dL (6.3-8.2)
[2021-08-15 12:01] LABS: Glucose,Whole Blood 101 mg/dL (75-99)
[2021-08-15] MEDS: BARICITINIB 2 MG TABLET PO SCH (14:17)
--- NOTE | 2021-08-15 14:49 | P.PN ---
Subjective Progress Note Date: 08/15/21 Principal diagnosis: Coronavirus associated pneumonia. This is a very pleasant 66-year-old female patient who follows with Dr. Bran as her primary care provider. She has hyperlipidemia, hypothyroidism. Approximately 12-13 days ago the patient developed a mild cough and shortness breath with fatigue, fever more so latex and some nausea with diarrhea. Poor appetite. She presented here to the emergency room last evening with progressive symptoms. She was found to be COVID-19 positive. She did not take the COVID-19 vaccination. Chest x-ray revealed bilateral patchy airspace disease. She was hypoxemic at 80% on room air. She is seen today in consultation on the regular medical floor. Currently sitting up in a chair at the bedside. Awake and alert. She is a dry nonproductive cough. Dyspnea on exertion. She is now up to 15 L high flow nasal cannula to maintain O2 saturations at 91%. White count 7.1. Hemoglobin 14.5. Platelets 257. Lymphocytes 0.7. D-dimer 1.10. Sodium 141. Potassium 4.0. Creatinine 0.59. Glucose 167. Ferritin 1177. LDH 1834. C-reactive protein 3.7. Pro-calcitonin 0.07. She's been initiated on Decadron, Lovenox, vitamin supplements. Outside the window for Remdesivir. Progress note dated 08/09/2021. 66-year-old female, again seen in room 480. She was admitted with a diagnosis of coronavirus associated pneumonia. She was seen by our consultative team, yesterday. Currently, the patient appears to be doing better. Currently, she is on 15 L high flow nasal cannula with saturations in the mid to high 90s. Temperature 97.4, heart rate 75, respiratory rate 18, and blood pressure 160/79. Laboratory data includes a white count of 6.21, hemoglobin 11.8, hematocrit 37.8, and platelet count 314,000. Sodium 145, potassium 3.6, chlorides 109, CO2 23, anion gap 13, BUN 23, and creatinine 0.6. Chest x-ray shows diffuse bilateral infiltrates. Progress note dated 08/12/2021. 66-year-old female who is again seen today in room 480. She was admitted with a diagnosis of coronavirus associated pneumonia. Currently, she is on 15 L high flow oxygen, and saline at 10 mL an hour. The patient states that she's feeling about the same. She is no better, and she is no worse. She is coughing. She is producing some clear phlegm. She denies any fever or chills. White count 7, hemoglobin 12, hematocrit 37.2, and platelet count 293,000. Sodium 136, potassium 4.3, chlorides 104, CO2 27, anion gap 5, BUN 17, and creatinine 0.54. Chest x-ray continues to show bilateral infiltrates. The chest x-ray is essentially unchanged in my opinion. Progress note dated 08/15/2021. 66-year-old female, again seen in room 480. The patient is doing better. She's been weaned down to 3 L nasal cannula. She previously was on 15 L high flow O2. She still has shortness of breath on exertion, but is feeling much improved. Labs today include a white count 8.5, hemoglobin 13.2, hematocrit 40.5, and platelet count 285,000. Sodium 136, potassium 4.3, chlorides 105, CO2 26, anion gap 5, BUN 22, and creatinine 0.55. No recent chest x-ray to report. Objective - Vital Signs Vital signs: Vital Signs Temp 97.7 F 08/15/21 08:00 Pulse 80 08/15/21 08:00 Resp 22 08/15/21 08:00 BP 112/72 08/15/21 08:00 Pulse Ox 91 L 08/15/21 08:00 Intake & Output 08/14/21 08/15/21 08/15/21 19:59 06:59 18:59 Other: Voiding Method Toilet # Voids - Exam No acute distress, oriented 3. No conversational dyspnea, use of accessory muscles, or audible wheezing. Patient is currently on 3 L with a saturation of 91% HEENT examination is grossly unremarkable. Neck supple. Full range of motion. No adenopathy thyromegaly or neck vein distention. Cardiovascular examination reveals regular rhythm rate. S1-S2 normal. No S3 or S4. No discernible murmur noted. Heart rate 80 bpm. Heart sounds are distant. Lungs reveal bilateral diffuse rhonchi and crackles. No wheezes. Breath sounds are equal bilaterally. Breath sounds are much improved. Abdomen soft bowel sounds are heard. No masses or tenderness. Extremities are intact. No cyanosis clubbing or edema. Skin is without rash or lesion. Neurologic examination is brief but nonfocal. - Labs CBC & Chem 7: 08/15/21 08:02 08/15/21 08:02 Labs: Abnormal Lab Results - Last 24 Hours (Table) 08/14/21 08/14/21 08/15/21 Range/Units 16:43 20:28 08:02 Lymphocytes # 0.7 L (1.0-4.8) k/uL Sodium (137-145) mmol/L BUN (7-17) mg/dL Glucose (74-99) mg/dL POC Glucose (mg/dL) 116 H 127 H (75-99) mg/dL ALT (4-34) U/L Alkaline Phosphatase (38-126) U/L Total Protein (6.3-8.2) g/dL Albumin (3.5-5.0) g/dL 08/15/21 08/15/21 Range/Units 08:02 12:00 Lymphocytes # (1.0-4.8) k/uL Sodium 136 L (137-145) mmol/L BUN 22 H (7-17) mg/dL Glucose 113 H (74-99) mg/dL POC Glucose (mg/dL) 101 H (75-99) mg/dL ALT 39 H (4-34) U/L Alkaline Phosphatase 21 L (38-126) U/L Total Protein 5.8 L (6.3-8.2) g/dL Albumin 3.2 L (3.5-5.0) g/dL Assessment and Plan Assessment: Acute hypoxemic respiratory failure secondary to Covid 19 pneumonia/coronavirus associated pneumonia. Elevated inflammatory marker secondary to coronavirus infection. History of hyperlipidemia. History of hypothyroidism. Plan: Plan dated 08/09/2021. The patient's on albuterol inhaler, vitamin C, vitamin D3, and zinc, SERGEY, Decadron, and Lovenox. The patient states that she feels better today than she did yesterday. We will continue to follow make recommendations where appr opriate. The patient was outside the window for REM. Prognosis is guarded. Plan dated 08/12/2021. The patient's lab work, and chest x-ray, from today, are reviewed. The chest x- ray in my opinion is essentially unchanged. Clinically, the patient feels like she is no better, but no worse. She remains on appropriate medications including Decadron twice a day, Lovenox, vitamin C, vitamin D3, zinc, and SERGEY. I did explain to the patient that she is receiving maximal medical therapy at this time. I did also mention that it was important that when she was in bed, that she move right side down, left side down, supine, and in prone position. Plan dated 08/15/2021. The patient is doing much better. She's been weaned down to 3 L nasal cannula. The patient remains on appropriate medications including vitamin cocktail, Decadron, Lovenox, and albuterol inhaler, and SERGEY. The patient does still have shortness of breath on exertion. If she is to be discharged, she likely will be discharged on oxygen therapy. X-rays, and labs are reviewed. Medications are reviewed. We will continue to follow the patient and make recommendations where appropriate. Time with Patient: Less than 30
[2021-08-15 16:52] LABS: Glucose,Whole Blood 125 mg/dL (75-99)
[2021-08-15] MEDS: MELATONIN 5 MG TABLET PO SCH (20:36)
[2021-08-15 21:05] LABS: Glucose,Whole Blood 120 mg/dL (75-99)
--- NOTE | 2021-08-15 22:51 | P.PN ---
Subjective Progress Note Date: 08/15/21 Principal diagnosis: COVID-19 pneumonia Ms. Walters is a 66-year-old female with a past medical history of hyperlipidemia, thyroid disorder admitted to the hospital for COVID-19 pneumonia. 08/14/2021- patient is seen and examined at the bedside today. She is sitting in a chair comfortably and watching out through the window. She is saturating at 93% on 4 L of oxygen. On reviewing the vitals temperature of 98, heart rate 82, respiratory 20, blood pressure 1 16 x 73. Patient denies having any difficulty in breathing cough or chest pain. She denies having any fevers chill s or rigors. No palpitations. She denies having any dysuria or hematuria. On reviewing the labs from this morning hemoglobin stable at 12.5. D-dimer 0.67. Sodium 1354.7, chloride 103, bicarbonate 29, creatinine 20, creatinine 0.57. Albumin 3.0. On 08/15/2021 patient is seen and examined at the bedside. She has no active complaints, difficulty in breathing is better. But the patient is very apprehensive about going home. She would rather go to a rehab facility and that go home. Patient denied having any fevers chills or rigors. Difficulty in breathing is improving. On reviewing the patient's vitals temperature of 97.7, heart rate 80, respiratory 22, blood pressure 112/72 saturating at 91% on 3 L of oxygen via nasal cannula. Patient medications have been Objective - Vital Signs Vital signs: Vital Signs Temp 97.7 F 08/15/21 08:00 Pulse 80 08/15/21 08:00 Resp 22 08/15/21 08:00 BP 112/72 08/15/21 08:00 Pulse Ox 91 L 08/15/21 08:00 Intake & Output 08/14/21 08/15/21 08/15/21 19:59 06:59 18:59 Other: Voiding Method Toilet # Voids - Exam PHYSICAL EXAMINATION: GENERAL: The patient is alert and oriented x3, not in any acute distress. HEENT: Pupils are round and equally reacting to light. EOMI. No scleral icterus. No conjunctival pallor. Normocephalic, atraumatic. CARDIOVASCULAR: S1 and S2 present. No murmurs, rubs, or gallops. PULMONARY: Chest diminished air flow. Few crackles at the posterior lung bases. ABDOMEN: Soft, nontender, nondistended, normoactive bowel sounds. No palpable organomegaly. MUSCULOSKELETAL: No joint swelling or deformity. EXTREMITIES: No cyanosis, clubbing, or pedal edema. NEUROLOGICAL: Gross neurological examination did not reveal any focal deficits. SKIN: No rashes. - Labs CBC & Chem 7: 08/15/21 08:02 08/15/21 08:02 Labs: Abnormal Lab Results - Last 24 Hours (Table) 08/14/21 08/14/21 08/15/21 Range/Units 16:43 20:28 08:02 Lymphocytes # 0.7 L (1.0-4.8) k/uL Sodium (137-145) mmol/L BUN (7-17) mg/dL Glucose (74-99) mg/dL POC Glucose (mg/dL) 116 H 127 H (75-99) mg/dL ALT (4-34) U/L Alkaline Phosphatase (38-126) U/L Total Protein (6.3-8.2) g/dL Albumin (3.5-5.0) g/dL 08/15/21 08/15/21 Range/Units 08:02 12:00 Lymphocytes # (1.0-4.8) k/uL Sodium 136 L (137-145) mmol/L BUN 22 H (7-17) mg/dL Glucose 113 H (74-99) mg/dL POC Glucose (mg/dL) 101 H (75-99) mg/dL ALT 39 H (4-34) U/L Alkaline Phosphatase 21 L (38-126) U/L Total Protein 5.8 L (6.3-8.2) g/dL Albumin 3.2 L (3.5-5.0) g/dL Assessment and Plan Assessment: ASSESSMENT Acute hypoxic respiratory failure secondary to COVID-19 pneumonia Hyperlipidemia Hypothyroidism Mild transaminitis Hyperglycemia secondary to steroid use GI DVT prophylaxis PLAN: Patient to be continued on oxygen support to maintain saturations above 90%. She is to be continued on steroids, anticoagulation, breathing treatments and multivitamins. We'll adjust the dose of insulin depending upon her blood sugars as she is on steroids. Patient requiring 4 L of oxygen, we will arrange for home oxygen therapy. Will consult PT OT for the recommendations for that she would be a candidate for subacute rehab. Anticipate discharge in the next 24-48 hours.
[2021-08-16] MEDS: SODIUM CHLORIDE 0.9% 1,000 ML IV SCH (04:22)
[2021-08-16] MEDS: LEVOTHYROXINE 100 MCG TAB PO SCH (05:32)
[2021-08-16 07:30] LABS: Glucose,Whole Blood 100 mg/dL (75-99)
[2021-08-16] MEDS: INSULIN ASPART (NovoLOG) 100 UNIT/ML VIAL SQ SCH ×2 (07:45→11:47)
[2021-08-16] MEDS: CHOLECALCIFEROL 25 MCG (1000 IU) TABLET PO SCH (07:49)
[2021-08-16] MEDS: FAMOTIDINE 20 MG TAB PO SCH (07:50)
[2021-08-16] MEDS: ZINC SULFATE 220 MG CAP PO SCH (07:50)
[2021-08-16] MEDS: ALPRAZolam 0.25 MG TAB PO SCH (07:50)
[2021-08-16] MEDS: DEXAMETHASONE SOD PHOSPHATE 10 MG/ML 1 ML VIAL IVP SCH (07:50)
[2021-08-16] MEDS: ASCORBIC ACID 500 MG TAB PO SCH (07:50)
[2021-08-16] MEDS: ENOXAPARIN 40 MG/0.4 ML SYRINGE SQ SCH (07:50)
[2021-08-16] MEDS: ALBUTEROL HFA INHALER INHALATION SCH ×2 (07:53→11:19)
[2021-08-16 08:41] LABS: Basophils % (A) 0 %; Eosinophils % (A) 0 %; HCT 39.2 % (34.0-46.0); Lymphocytes # (A) 0.9 k/uL (1.0-4.8); Lymphocytes % (A) 10 %; MCH 28.8 pg (25.0-35.0); MCHC 33.2 g/dL (31.0-37.0); MCV 86.5 fL (80.0-100.0); Mean Platelet Volume 8.9; Monocytes # (A) 0.5 k/uL (0-1.0); Monocytes % (A) 6 %; Neutrophils # (A) 7.2 k/uL (1.3-7.7); Neutrophils % (A) 83 %; Platelet Count 271 k/uL (150-450); RBC 4.53 m/uL (3.80-5.40); RDW 13.3 % (11.5-15.5); WBC 8.7 k/uL (3.8-10.6)
[2021-08-16 08:58] LABS: ALT 41 U/L (4-34); AST 27 U/L (14-36); African American GFR (CKD) >90 (>60 ml/min/1.73 sqM); Albumin 3.2 g/dL (3.5-5.0); Albumin/Globulin Ratio 1.1; Alkaline Phosphatase 21 U/L (38-126); Anion Gap 4 mmol/L; Blood Urea Nitrogen 23 mg/dL (7-17); Calcium 9.4 mg/dL (8.4-10.2); Carbon Dioxide 30 mmol/L (22-30); Chloride 102 mmol/L (98-107); Globulin 2.8 g/dL; Glucose 95 mg/dL (74-99); Non-African American GFR(CKD) >90 (>60 ml/min/1.73 sqM); Potassium 4.6 mmol/L (3.5-5.1); Sodium 136 mmol/L (137-145)
[2021-08-16] MEDS: ALBUTEROL HFA INHALER INHALATION PRN (11:19)
[2021-08-16 11:31] VITALS: BP 125/76; PULSE 76; RESP 18; TEMP 97.4
[2021-08-16 11:40] LABS: Glucose,Whole Blood 116 mg/dL (75-99)
--- NOTE | 2021-08-16 13:32 | P.PN ---
Subjective Progress Note Date: 08/16/21 On 08/16/2021 patient seen in follow-up on medical surgical floor, she is breathing comfortably, she is ambulating about the room, tolerating activity very well, she is currently down to 3 L of oxygen pulse ox is 90%, lung sounds are essentially clear to auscultation, she has had no acute events overnight, no fever or chills. Today's labs have been reviewed, white blood cell count is 8.7, hemoglobin is 13, electrolytes and renal profile were unremarkable, her last LDH from 08/15/2021 was 732, and CRP was 0.5. She remains on Baricitinib, Decadron, Lovenox, and multivitamins. She is tolerating oral intake, no nausea vomiting or diarrhea, no abdominal pain. No complaint of chest discomfort, patient is anticipated to go home today. Objective - Vital Signs Vital signs: Vital Signs Temp 97.4 F L 08/16/21 11:30 Pulse 76 08/16/21 11:30 Resp 18 08/16/21 11:30 BP 125/76 08/16/21 11:30 Pulse Ox 98 08/16/21 11:30 Intake & Output 08/15/21 08/16/21 08/16/21 18:59 06:59 18:59 Other: Voiding Method Toilet Toilet # Voids 3 - Exam GENERAL EXAM: Alert, very pleasant 66 yo female on 3 l/min with pulse ox of 98% comfortable in no apparent distress. HEAD: Normocephalic/atraumatic. EYES: Normal reaction of pupils, equal size. Conjunctiva pink, sclera white. NOSE: Clear with pink turbinates. THROAT: No erythema or exudates. NECK: No masses, no JVD, no thyroid enlargement, no adenopathy. CHEST: No chest wall deformity. Symmetrical expansion. LUNGS: Equal air entry with no crackles, wheeze, rhonchi or dullness. CVS: Regular rate and rhythm, normal S1 and S2, no gallops, no murmurs, no rubs ABDOMEN: Soft, nontender. No hepatosplenomegaly, normal bowel sounds, no guarding or rigidity. EXTREMITIES: No clubbing, no edema, no cyanosis, 2+ pulses and upper and lower extremities. MUSCULOSKELETAL: Muscle strength and tone normal. SPINE: No scoliosis or deformity SKIN: No rashes CENTRAL NERVOUS SYSTEM: Alert and oriented -3. No focal deficits, tone is normal in all 4 extremities. PSYCHIATRIC: Alert and oriented -3. Appropriate affect. Intact judgment and insight. - Labs CBC & Chem 7: 08/16/21 07:56 08/16/21 07:56 Labs: Abnormal Lab Results - Last 24 Hours (Table) 08/15/21 08/15/21 08/16/21 Range/Units 16:50 21:04 07:24 Lymphocytes # (1.0-4.8) k/uL Sodium (137-145) mmol/L BUN (7-17) mg/dL POC Glucose (mg/dL) 125 H 120 H 100 H (75-99) mg/dL ALT (4-34) U/L Alkaline Phosphatase (38-126) U/L Total Protein (6.3-8.2) g/dL Albumin (3.5-5.0) g/dL 08/16/21 08/16/21 08/16/21 Range/Units 07:56 07:56 11:38 Lymphocytes # 0.9 L (1.0-4.8) k/uL Sodium 136 L (137-145) mmol/L BUN 23 H (7-17) mg/dL POC Glucose (mg/dL) 116 H (75-99) mg/dL ALT 41 H (4-34) U/L Alkaline Phosphatase 21 L (38-126) U/L Total Protein 6.0 L (6.3-8.2) g/dL Albumin 3.2 L (3.5-5.0) g/dL Assessment and Plan Plan: Assessment:: #1. Acute hypoxic respiratory failure related to COVID-19 pneumonia, outside the window for Remdesivir, patient is not vaccinated, initiated on Baricitinib on 08/07/2021. Improving, and FiO2 is currently down to 3 L #2. Elevated inflammatory markers related to the above, improving #3. Hypothyroidism #4. Hyperlipidemia Plan: Patient has remained stable in the last 24 hours Currently down to 3 L, satting above 95%, this can probably be further wean down to 2 L Patient qualified for home oxygen, she will be going home on 2 L of oxygen Maribeth neb camera discontinued upon discharge Complete a total of 10 day course of oral Decadron She can be considered for discharge home today from pulmonary perspective Outpatient follow-up in the office with Dr. Camp in 2 weeks I performed a history & physical examination of the patient and discussed their management with my nurse practitioner, Dee Springer. I reviewed the nurse practitioner's note and agree with the documented findings and plan of care. Lung sounds are positive for clear breath sounds throughout the lung schneider. The findings and the impression was discussed with the patient. I attest to the documentation by the nurse practitioner. Time with Patient: Less than 30
[2021-08-16] MEDS: BARICITINIB 2 MG TABLET PO SCH (15:27)
--- NOTE | 2021-08-16 17:09 | P.DS ---
Providers Date of admission: 08/07/21 20:29 Expected date of discharge: 08/16/21 Attending physician: Nimesh Suarez MD Consults: 08/07/21 20:29 Consult Physician Urgent Consulting Provider: Kamilah Roberts Consult Reason/Comments: covid, hypoxia Do you want consulting provider notified?: Yes Primary care physician: Karen Bran [facility] Course: Mrs. Walters is a 66-year-old female with a past medical history of hyperlipidemia and thyroid disorder admitted to the hospital with a chief complaint of mild cough and difficulty in breathing. She was also having fatigue fever associated with some nausea and diarrhea with poor appetite. Patient's symptoms have progressively worsening and she came into the ED. In the emergency department patient was found to have COVID-19 positive. She is not vaccinated against COVID-19. Patient's chest x-ray revealed bilateral patchy airspace disease. She was hypoxic at 80% on room air. So the patient was given oxygen support, started on steroids multivitamins and Lovenox and recieved Baricitinib. Patient had a prolonged recovery. For the past couple of days she should significant improvement in her oxygenation status. Overall the patient's appetite has slowly improved and her exertional dyspnea improved. PT OT has been consulted. They suggested that the patient can be discharged home. She has been cleared by pulmonary for discharge. Today on examination patient's vital signs 97.4, heart rate 76, respiratory rate 18, blood pressure 100/76 saturating at 98 on 3 L of of oxygen. PHYSICAL EXAMINATION: GENERAL: The patient is alert and oriented x3, not in any acute distress. HEENT: Pupils are round and equally reacting to light. EOMI. No scleral icterus. CARDIOVASCULAR: S1 and S2 present. No murmurs, rubs, or gallops. PULMONARY: Equal air entry with no crackles, wheeze, rhonchi or dullness. ABDOMEN: Soft, nontender, nondistended, normoactive bowel sounds. No palpable organomegaly. MUSCULOSKELETAL: No joint swelling or deformity. EXTREMITIES: No cyanosis, clubbing, or pedal edema. NEUROLOGICAL: Gross neurological examination did not reveal any focal deficits. SKIN: No rashes. Patient's labs have been reviewed 08/16/21 07:56 08/16/21 07:56 Labs: Abnormal Lab Results - Last 24 Hours (Table) 08/15/21 08/15/21 08/16/21 Range/Units 16:50 21:04 07:24 Lymphocytes # (1.0-4.8) k/uL Sodium (137-145) mmol/L BUN (7-17) mg/dL POC Glucose (mg/dL) 125 H 120 H 100 H (75-99) mg/dL ALT (4-34) U/L Alkaline Phosphatase (38-126) U/L Total Protein (6.3-8.2) g/dL Albumin (3.5-5.0) g/dL 08/16/21 08/16/21 08/16/21 Range/Units 07:56 07:56 11:38 Lymphocytes # 0.9 L (1.0-4.8) k/uL Sodium 136 L (137-145) mmol/L BUN 23 H (7-17) mg/dL POC Glucose (mg/dL) 116 H (75-99) mg/dL ALT 41 H (4-34) U/L Alkaline Phosphatase 21 L (38-126) U/L Total Protein 6.0 L (6.3-8.2) g/dL Albumin 3.2 L (3.5-5.0) g/dL DISCHARGE DIAGNOSIS Acute hypoxic respiratory failure secondary to COVID-19 pneumonia Hyperlipidemia Hypothyroidism Mild transaminitis Hyperglycemia secondary to steroid use GI DVT prophylaxis She is being discharged on 3 L of home oxygen. Follow-up: Patient is advised to complete her steroids course. She is being discharged on multivitamin along with antacids. Patient is advised to follow up with her primary care physician in 2-3 days. Follow-up with pulmonary Dr. Chatman in 2-3 weeks. More than 35 minutes spent towards the discharge of the patient. Patient Condition at Discharge: Fair Plan - Discharge Summary Discharge Rx Participant: No New Discharge Prescriptions: New Ascorbic Acid [Vitamin C] 500 mg PO BID 15 Days #30 tab Dexamethasone [Decadron] 6 mg PO DAILY 4 Days #4 tablet Albuterol Sulfate [Ventolin HFA] 1 - 2 puff INHALATION Q6H PRN 30 Days #1 each PRN Reason: Dyspnea Zinc Sulfate [Orazinc] 220 mg PO DAILY 30 Days #30 cap Famotidine [Pepcid] 20 mg PO BID 15 Days #30 tab Cholecalciferol [Vitamin D3 (25 Mcg = 1000 Iu)] 125 mcg PO DAILY 30 Days #30 tablet Continue Levothyroxine Sodium [Euthyrox] 100 mcg PO DAILY Atorvastatin [Lipitor] 40 mg PO HS Discharge Medication List Atorvastatin [Lipitor] 40 mg PO HS 08/07/21 [History] Levothyroxine Sodium [Euthyrox] 100 mcg PO DAILY 08/07/21 [History] Albuterol Sulfate [Ventolin HFA] 1 - 2 puff INHALATION Q6H PRN 30 Days #1 each 08/16/21 [Rx] Ascorbic Acid [Vitamin C] 500 mg PO BID 15 Days #30 tab 08/16/21 [Rx] Cholecalciferol [Vitamin D3 (25 Mcg = 1000 Iu)] 125 mcg PO DAILY 30 Days #30 tablet 08/16/21 [Rx] Dexamethasone [Decadron] 6 mg PO DAILY 4 Days #4 tablet 08/16/21 [Rx] Famotidine [Pepcid] 20 mg PO BID 15 Days #30 tab 08/16/21 [Rx] Zinc Sulfate [Orazinc] 220 mg PO DAILY 30 Days #30 cap 08/16/21 [Rx] Follow up Appointment(s)/Referral(s): Kamilah Roberts MD [STAFF PHYSICIAN] - 09/06/21 2:00 pm [facility] [NON-STAFF] - As Needed (On delivery, you should have been given a card with instructions to go online and view teaching materials. Once this is completed, please call #[phone] to finalize virtual oxygen training and ask any questions.) Getachew Greenberg [NON-STAFF] - As Needed Karen Bran MD [Primary Care Provider] - 08/17/21 (Telehealth appointment - Dr Bran office will call patient tomorrow to explain how the Telehealth appointment works) Patient Instructions/Handouts: Coronavirus Disease 2019 (COVID-19), Using Oxygen at Home (DC) Discharge Disposition: HOME SELF-CARE
[2021-08-19 08:24] LABS: Glucose,Whole Blood 108 mg/dL (75-99)
== END 2021-08-16 16:35 | disposition home or self-care (01) | DRG 177 ==
LOC: EC 18:44 → 4SSUR 20:29
PROVIDERS: ADMIT Internal Medicine; ATTEND Internal Medicine
PROC: XW0DXM6 Introduction of Baricitinib into Mouth and Pharynx, External Approach, New Technology Group 6 (ICD-10-PCS; principal; 2021-08-07)
DX: U07.1 COVID-19 (principal); J12.82 Pneumonia due to coronavirus disease 2019; J96.01 Acute respiratory failure with hypoxia; Z79.899 Other long term (current) drug therapy; Z79.890 Hormone replacement therapy; Z83.3 Family history of diabetes mellitus; E03.9 Hypothyroidism, unspecified; E78.5 Hyperlipidemia, unspecified; F41.9 Anxiety disorder, unspecified; R63.0 Anorexia; R74.01 Elevation of levels of liver transaminase levels; R74.8 Abnormal levels of other serum enzymes; T38.0X5A Adverse effect of glucocorticoids and synthetic analogues, initial encounter; R73.9 Hyperglycemia, unspecified
CPT/HCPCS: 36415; 71045; 80048; 80053; 82728; 83605; 83615; 83735; 84145; 85025; 85027; 85379; 85610; 85730; 86140; 87040; 87635; 93005; 94640; 94760; 99285

== ENCOUNTER → 2022-02-17 | Outpatient (CLI) | payer MEDICARE, OTHER ==
--- NOTE | 2022-02-18 14:43 | MM ---
Reason for exam: screening (asymptomatic). Last mammogram was performed 1 year and 1 month ago. History: Patient is postmenopausal. Took estrogen for 7 years beginning at age 46. Physical Findings: A clinical breast exam by your physician is recommended on an annual basis and results should be correlated with mammographic findings. MG 3D Screening Mammo W/Cad Bilateral CC and MLO view(s) were taken. Prior study comparison: January 26, 2021, bilateral MG 3d screening mammo w/cad. July 04, 2019, right breast MG work up mamm w CAD RT. Benign appearing bilateral calcifications. There is chronic nodularity in the left breast. This finding is changed when compared with previous exams. ASSESSMENT: Incomplete: need additional imaging evaluation, BI-RAD 0 RECOMMENDATION: Ultrasound of the left breast. [facility] will attempt to contact patient to return for ultrasound.
== END | disposition home or self-care (01) ==
LOC: RADMAMWWP 11:56
PROVIDERS: ATTEND Internal Medicine
DX: Z12.31 Encounter for screening mammogram for malignant neoplasm of breast (principal); Z78.0 Asymptomatic menopausal state
CPT/HCPCS: 77063; 77067

== ENCOUNTER → 2023-09-20 | Outpatient (CLI) | payer MEDICARE, OTHER ==
--- NOTE | 2023-09-21 09:43 | MM ---
Reason for Exam: Screening (asymptomatic). Last mammogram was performed 1 year(s) and 7 month(s) ago. Patient History: Menarche at age 13. First Full-Term at age 26. Left ovary removed at age 46. Right ovary removed at age 46. Hysterectomy at age 46. Postmenopausal. Patient has history of breast feeding. Estrogen, starting at age 46 for 7 years. Risk Values: Rebekah 5 year model risk: 1.7%. NCI Lifetime model risk: 5.4%. Prior Study Comparison: 07/04/2019 Right Diagnostic Mammogram, [facility]. 01/26/2021 Bilateral Screening Mammogram, [facility]. 02/17/2022 Bilateral Screening Mammogram, [facility]. Tissue Density: There are scattered fibroglandular densities. Findings: Analyzed By CAD. There is no suspicious group of microcalcifications or new suspicious mass. Overall Assessment: Negative, BI-RAD 1 Management: Screening Mammogram of both breasts in [address] [facility] will attempt to contact patient to return for supplemental views and ultrasound if indicated. Patient should continue monthly self-breast exams. A clinical breast exam by your physician is recommended on an annual basis. This exam should not preclude additional follow-up of suspicious palpable abnormalities. Note on Rebekah scores and lifetime risk: 1. A Rebekah score greater than 3% is considered moderate risk. If this is the case, consider specialist referral to assess eligibility for a risk reducing agent. 2. If overall lifetime risk for the development of breast cancer is 20% or higher, the patient may qualify for future screening with alternating mammogram and breast MRI. Electronically signed and approved by: Marcus Logan DO
--- NOTE | 2023-09-22 12:11 | BD ---
EXAMINATION TYPE: Axial Bone Density DATE OF EXAM: 09/20/2023 CLINICAL HISTORY: 68 years old Female. ICD-10 CODE: N95.8 MENOPAUSAL DISORDERS Height: 63 in Weight: 171 lbs FRAX RISK QUESTIONS: History of Fracture in Adulthood: lt wrist fx age 64 RISK FACTORS HISTORY OF: History of Wrist Fracture: lt wrist fx age 64 Active: yes Postmenopausal woman: total hysterectomy age 54 Take estrogen and/or progesterone medications: not now How long: took for 1 year MEDICATIONS: Thyroid Medications: yes Which medication: Levothyroxine How Lon+ years Additional Medications: cholesterol meds, garlic pills, preservision EXAM MEASUREMENTS: Bone mineral densitometry was performed using the [employer] System. Bone mineral density as measured about the Lumbar spine is: ----- L1-L4(G/cm2): 1.251 T Score Values are as follows: ----- L1: -0.2 ----- L2: 0.0 ----- L3: 1.4 ----- L4: 0.9 ----- L1-L4: 0.6 Z Score Values are as follows: ----- L1: 1.0 ----- L2: 1.2 ----- L3: 2.6 ----- L4: 2.1 ----- L1-L4: 1.8 Bone mineral density has: Decreased -3.8% since study of: 07/11/2005 Bone mineral density about the R hip (g/cm2): 0.889 Bone mineral density about the L hip (g/cm2): 1.007 T Score values are as follows: -----R Neck: -1.2 -----L Neck: -0.9 -----R Total: -0.9 -----L Total: 0.0 Z Score values are as follows: -----R Neck: 0.2 -----L Neck: 0.5 -----R Total: 0.2 -----L Total: 1.1 Bone mineral density baseline FRAX%s: The graph provided illustrates a 14.1% chance for a major osteoporotic fx and a 1.5% chance f or the hips probability for fx in 10 years time. IMPRESSION: Osteopenia (T Score between -2.5 and -1). There is slightly increased risk of fracture and the patient may be considered for treatment. Re-Screen 2-5 years. NOTE: T-SCORE=SD OF THE YOUNG ADULT MEAN.
== END | disposition home or self-care (01) ==
LOC: RADMAMWWP 07:13
PROVIDERS: ATTEND Internal Medicine
DX: Z12.31 Encounter for screening mammogram for malignant neoplasm of breast (principal); M85.851 Other specified disorders of bone density and structure, right thigh; N95.8 Other specified menopausal and perimenopausal disorders; Z78.0 Asymptomatic menopausal state
CPT/HCPCS: 77063; 77067; 77080

== ENCOUNTER → 2023-11-23 | Outpatient (CLI) | payer MEDICARE, OTHER ==
--- NOTE | 2023-11-23 15:00 | XR ---
EXAMINATION TYPE: XR hand complete RT, XR wrist complete RT DATE OF EXAM: 11/23/2023 1:22 PM CLINICAL INDICATION:Female, 68 years old with history of [id number] RT WRIST PAIN,RT HAND PAIN; YC H COMPARISON: None TECHNIQUE: XR hand complete RT, XR wrist complete RT Frontal, lateral and oblique views were obtained of the wrist and hand.. FINDINGS: Normal alignment of the visualized joints. No acute osseous pathology is identified. No e vidence of soft tissue swelling. Mild multifocal degeneration with osteophyte formation and joint spa ce narrowing. IMPRESSION: 1. No acute osseous pathology. 2. Mild multifocal degeneration changes of the hand and wrist.
== END | disposition home or self-care (01) ==
LOC: RADXRYALE 13:01
PROVIDERS: ATTEND Internal Medicine
DX: M19.031 Primary osteoarthritis, right wrist (principal); M19.041 Primary osteoarthritis, right hand

== ENCOUNTER → 2024-10-15 | Outpatient (CLI) | payer MEDICARE, OTHER ==
--- NOTE | 2024-10-15 12:08 | MM ---
Reason for Exam: Screening (asymptomatic). Last mammogram was performed 1 year(s) and 1 month(s) ago. Patient History: Menarche at age 13. First Full-Term at age 26. Left ovary removed at age 46. Right ovary removed at age 46. Hysterectomy at age 46. Postmenopausal. Patient has history of breast feeding. Estrogen, starting at age 46 for 7 years. Risk Values: Rebekah 5 year model risk: 1.7%. NCI Lifetime model risk: 5.1%. Prior Study Comparison: 01/26/2021 Bilateral Screening Mammogram, [facility]. 02/17/2022 Bilateral Screening Mammogram, [facility]. 09/20/2023 Bilateral MG 3D screening mammo w/cad, [facility]. Tissue Density: The breasts are heterogeneously dense, which may obscure small masses. Findings: Analyzed By CAD. Right breast: There is no suspicious group of microcalcifications or new suspicious mass. Left breast: There is no suspicious group of microcalcifications or new suspicious mass. Overall Assessment: Negative, BI-RAD 1 Management: Screening Mammogram of both breasts in [address] [facility] will attempt to contact patient to return for supplemental views and ultrasound if indicated. Patient should continue monthly self-breast exams. A clinical breast exam by your physician is recommended on an annual basis. This exam should not preclude additional follow-up of suspicious palpable abnormalities. Note on Rebekah scores and lifetime risk: 1. A Rebekah score greater than 3% is considered moderate risk. If this is the case, consider specialist referral to assess eligibility for a risk reducing agent. 2. If overall lifetime risk for the development of breast cancer is 20% or higher, the patient may qualify for future screening with alternating mammogram and breast MRI. [facility], , 10/15/2024 12:05 PM. Electronically signed and approved by: Marcus Logan DO
== END | disposition home or self-care (01) ==
LOC: RADMAMWWP 10:35
PROVIDERS: ATTEND Internal Medicine
DX: Z12.31 Encounter for screening mammogram for malignant neoplasm of breast (principal); Z90.722 Acquired absence of ovaries, bilateral; Z78.0 Asymptomatic menopausal state; R92.333 Mammographic heterogeneous density, bilateral breasts
CPT/HCPCS: 77063; 77067